=== PATIENT | female | born 1965 ===

== ENCOUNTER 2017-01-20 22:14 | Emergency (ER) | payer OTHER ==
[2017-01-20 22:14] VITALS: BMI 36.6
--- NOTE | 2017-01-20 23:03 | C.PDOC ---
History Of Present Illness 51 year old female presents to the ED with complaints of a headache and chills for the past few days. Patient states she is 3 months s/p nasal surgery for a deviated septum and started experiencing a foul odor from her nose 3 weeks after. She notes having associated pain, described as a burning sensation, from her sinuses up to her head and was recently started on Bactrim. Denies fever, vomiting, throat pain, or any other complaints at this time. Time Seen by Provider: 01/20/17 22:27 Chief Complaint (Nursing): Headache History Per: Patient History/Exam Limitations: no limitations Onset/Duration Of Symptoms: Days Current Symptoms Are (Timing): Still Present Severity: Mild Associated Symptoms: denies: Blurred Vision Past Medical History Reviewed: Historical Data, Nursing Documentation, Vital Signs Vital Signs: Last Vital Signs Temp 97.3 F L 01/20/17 23:43 Pulse 88 01/20/17 23:43 Resp 18 01/20/17 23:43 BP 146/88 01/20/17 23:43 Pulse Ox 98 01/20/17 23:43 - Medical History PMH: Anxiety, Asthma, Cardia Arrhythmia, Depression, Diabetes, Gastritis, HTN, Hypercholesterolemia, Chronic Pain (Back (since fall in February 2015)) Surgical History: Endoscopy Family History: States: Unknown Family Hx - Social History Hx Tobacco Use: No Hx Alcohol Use: No Hx Substance Use: No - Immunization History Hx Tetanus Toxoid Vaccination: No Hx Influenza Vaccination: No Hx Pneumococcal Vaccination: No Review Of Systems Except As Marked, All Systems Reviewed And Found Negative. Constitutional: Positive for: Chills, Other (+Sinus pain). Negative for: Fever Eyes: Negative for: Vision Change Gastrointestinal: Negative for: Vomiting Musculoskeletal: Negative for: Neck Pain Neurological: Positive for: Headache Physical Exam - Physical Exam Appears: Non-toxic, No Acute Distress Skin: Normal Color, Warm, Dry, No Rash Head: Atraumatic, Normacephalic, Tenderness (+Left maxillary sinus tenderness) Eye(s): bilateral: Normal Inspection, PERRL, EOMI Ear(s): Bilateral: Normal Nose: Normal, No Discharge, No Epistaxis, No Septal Hematoma Oral Mucosa: Moist Throat: Normal, No Erythema, No Exudate Neck: Supple Chest: Symmetrical Cardiovascular: Rhythm Regular, No Friction Rub, No Murmur Respiratory: Normal Breath Sounds, No Accessory Muscle Use, No Rales, No Rhonchi , No Wheezing Neurological/Psych: Oriented x3, Normal Speech, Normal Cognition, Normal Motor Gait: Steady ED Course And Treatment O2 Sat by Pulse Oximetry: 97 (Room air) Pulse Ox Interpretation: Normal - CT Scan/US CT Head w/o contrast Other Rad Studies (CT/US): Read By Radiologist, Radiology Report Reviewed CT/US Interpretation: EXAM: CT Head Without Intravenous Contrast. CLINICAL HISTORY: 51 years old, female; Condition or disease; Headache; Additional info : Maxillary sinus tenderness,. R/O sinusitis. TECHNIQUE: Axial computed tomography images of the head/brain without intravenous contrast. This CT exam. was performed using one or more of the following dose reduction techniques: automated exposure. control, adjustment of the mA and/or kV according to patient size, and/or use of iterative. reconstruction technique. COMPARISON: CT - HEAD W/O CONTRAST 06/18/2016 11:29:15 PM. FINDINGS: Brain: Mild atrophy. No intracranial hemorrhage. No mass. No definite edema. Ventricles: No hydrocephalus. Bones/joints: No acute fracture. Soft tissues: Unremarkable. Sinuses: Tiny LEFT maxillary retention cyst. Mastoid air cells: No mastoid effusion. Orbits: Unremarkable as visualized. IMPRESSION: 1. No acute intracranial abnormality. 2. Incidental/non-acute findings are described above Progress Note: CT Head w/o contrast ordered and reviewed. Patient treated with Toradol and Prednisone Medical Decision Making Medical Decision Making: Results were discussed with the patient. Patient reports that she was placed on antibiotics for possible sinusitis by ENT 2 days ago. Patient was instructed to continue taking the antibiotics until complete. Disposition - Disposition Referrals: Shaheed Garcia MD [Staff Provider] - Disposition: HOME/ ROUTINE Disposition Time: 23:29 Condition: GOOD Additional Instructions: Continue taking the antibiotics until finished Follow up with the ENT doctor on thursday as scheduled without fail. Return if worsened. Prescriptions: Ibuprofen [Motrin] 600 mg PO TID #21 tab predniSONE [Prednisone] 10 mg PO BID #10 tab Instructions: Sinusitis (ED) - Clinical Impression Clinical Impression: Sinusitis - PA / PAPER CORE MACHINE OPERATOR / Resident Statement MD/DO has reviewed & agrees with the documentation as recorded. - Scribe Statement The provider has reviewed the documentation as recorded by the Scribe Ysteena Nasralah. All medical record entries made by the Scribe were at my direction and personally dictated by me. I have reviewed the chart and agree that the record accurately reflects my personal performance of the history, physical exam, medical decision making, and the department course for this patient. I have also personally directed, reviewed, and agree with the discharge instructions and disposition.
[2017-01-20 23:44] VITALS: BP 146/88; PULSE 88; RESP 18; TEMP 97.3
[2017-01-21 05:28] VITALS: O2SAT 97
--- NOTE | 2017-01-21 08:36 | CT ---
PROCEDURE: CT HEAD WITHOUT CONTRAST. HISTORY: maxillary sinus tenderness, r/o sinusitis COMPARISON: 06/18/2016 TECHNIQUE: Axial computed tomography images were obtained through the head/brain without intravenous contrast. Radiation dose: Total exam DLP = 890 mGy-cm. This CT exam was performed using one or more of the following dose reduction techniques: Automated exposure control, adjustment of the mA and/or kV according to patient size, and/or use of iterative reconstruction technique. FINDINGS: HEMORRHAGE: No intracranial hemorrhage. BRAIN: Mild atrophy. No chronic microvascular ischemic changes. VENTRICLES: Unremarkable. No hydrocephalus. CALVARIUM: Unremarkable. PARANASAL SINUSES: Tiny mucosal retention cyst in the left maxillary sinus. MASTOID AIR CELLS: Unremarkable as visualized. No inflammatory changes. OTHER FINDINGS: None. IMPRESSION: No acute intracranial abnormality. Tiny mucosal retention cyst in the left maxillary sinus. These findings were preliminarily reported at 11:04 p.m. on 01/20/[address] Max Motta from [facility].
== END 2017-01-20 23:43 | disposition home or self-care (01) ==
LOC: C.ER 22:14
DX: J32.9 Chronic sinusitis, unspecified (principal)
CPT/HCPCS: 70450; 96372; 99284; J1885

== ENCOUNTER 2018-02-12 10:30 | Inpatient (IN) | payer OTHER ==
[2018-02-12 10:31] VITALS: BMI 36.6
--- NOTE | 2018-02-12 11:06 | C.PDOC ---
History Of Present Illness 52 y/o female with a PMHx of HTN, diabetes, and hypercholesterolemia, presents to the ED via EMS with 3 hour history of sharp chest pain. Associated with SOB , nausea, and 1 episode of vomiting. Patient states the pain began suddenly this morning, and due to persistence of pain she called EMS. She denies prior hx of DVT or pulmonary embolism. On further discussion patient also states she fell 2 days ago, tripped and hit her head. Time Seen by Provider: 02/12/18 10:39 Chief Complaint (Nursing): Chest Pain History Per: Patient History/Exam Limitations: no limitations Onset/Duration Of Symptoms: Hrs Current Symptoms Are (Timing): Still Present Past Medical History Reviewed: Historical Data, Nursing Documentation, Vital Signs Vital Signs: Last Vital Signs Temp 97.5 F L 02/14/18 04:00 Pulse 82 02/14/18 06:01 Resp 16 02/14/18 06:01 BP 90/49 L 02/14/18 06:01 Pulse Ox 100 02/14/18 07:43 - Medical History PMH: Anxiety, Asthma, Cardia Arrhythmia, Depression, Diabetes, Gastritis, HTN, Hypercholesterolemia, Hyperlipidemia, Chronic Pain (Back (since fall in February 2015 )) Denies: Chronic Kidney Disease Surgical History: Endoscopy Family History: States: Unknown Family Hx - Social History Hx Tobacco Use: No Hx Alcohol Use: No Hx Substance Use: No - Immunization History Hx Tetanus Toxoid Vaccination: No Hx Influenza Vaccination: No Hx Pneumococcal Vaccination: No Review Of Systems Except As Marked, All Systems Reviewed And Found Negative. Cardiovascular: Positive for: Chest Pain Respiratory: Positive for: Shortness of Breath Gastrointestinal: Positive for: Nausea, Vomiting Physical Exam - Physical Exam Appears: Non-toxic, No Acute Distress Skin: Normal Color, Warm, Dry Head: Atraumatic, Normacephalic Eye(s): bilateral: Normal Inspection, PERRL, EOMI Oral Mucosa: Moist Neck: Normal ROM, Supple Chest: Symmetrical, No Tenderness Cardiovascular: Rhythm Regular, No Murmur Respiratory: Normal Breath Sounds, No Accessory Muscle Use, No Rales, No Rhonchi , No Wheezing Gastrointestinal/Abdominal: Soft, No Tenderness, No Distention Extremity: Normal ROM, No Calf Tenderness, No Swelling Pulses: Left Radial: Normal, Right Radial: Normal Neurological/Psych: Oriented x3, Normal Speech ED Course And Treatment - Laboratory Results Result Diagrams: 02/14/18 06:53 02/14/18 04:15 ECG: Interpreted By Me, Viewed By Me, Discussed With Obstetrician And Gynaecologist ECG Rhythm: Sinus Rhythm (at 99 bpm, with normal intervals, normal axis, poor R wave progression), ST/T Changes (less than [address] elevation in v2) Interpretation Of ECG: Poor R wave progression is new compared to old EKG on O2 Sat by Pulse Oximetry: 100 (RA) Pulse Ox Interpretation: Normal - Other Rad CHEST X-Ray: Read By Radiologist Interpretation: FINDINGS: LUNGS: No focal consolidation. There is a tiny density overlying the lateral margin right 6th rib) that could represent film screen or vessel on end artifact however possibility of a tiny granuloma cannot be excluded. Follow-up nonemergent CT scan chest could be performed for further evaluation. PLEURA: No pneumothorax or pleural fluid seen. CARDIOVASCULAR: Normal. OSSEOUS STRUCTURES: No significant abnormalities. VISUALIZED UPPER ABDOMEN: Normal. OTHER FINDINGS: None. IMPRESSION: No acute infiltrates. Questionable artifact versus tiny granuloma lateral aspect right upper/mid lung zone as above - CT Scan/US CT Head Other Rad Studies (CT/US): Read By Radiologist, Radiology Report Reviewed CT/US Interpretation: FINDINGS: HEMORRHAGE: No acute parenchymal, subarachnoid or extra-axial hemorrhage. BRAIN: No evidence of large acute infarct. Note again made of prominent subarachnoid space left anterior inferior middle cranial fossa. Re- demonstrated is a tiny focus of fat within right choroid plexus. Mild generalized volume loss. VENTRICLES: No obstructive hydrocephalus. CALVARIUM: Unremarkable. PARANASAL SINUSES: Previously noted mucosal thickening left maxillary antrum improved. MASTOID AIR CELLS: Unremarkable as visualized. No inflammatory changes. OTHER FINDINGS : None. IMPRESSION: No acute intracranial hemorrhage. Mild generalized volume Medical Decision Making Medical Decision Making: Impression: Chest pain, Head injury Initial Plan: --EKG --Pro-BNP --CMP --Lipase --Troponin I --CBC --D dimer --Chest x-ray --Accucheck --Aspirin 81 mg PO --Pepcid 20 mg IVP --Zofran 4 mg IVP --CT Head w/o contrast On reevaluation, patient continues to complain of ongoing chest pain. 2nd EKG ordered, shows no changes. Normal sinus rhythm at 99 bpm with poor R wave progression 12:[address] Sheikh, cardiology on-call for stat consult 12:[address] Ambriz. Patient admitted to tele obs for chest pain. 1:[address] Sheikh placed 2:03 Received call back from Dr. Sheikh, notified of patient and states he will see patient. Disposition Discussed With : Santos Ambriz Doctor Will See Patient In The: Hospital Counseled Patient/Family Regarding: Studies Performed, Diagnosis - Disposition Disposition: HOSPITALIZED Disposition Time: 12:32 Condition: FAIR - Clinical Impression Clinical Impression: Chest pain - Scribe Statement The provider has reviewed the documentation as recorded by the Scribe (Brenda Ashby) Provider Attestation: All medical record entries made by the Scribe were at my direction and personally dictated by me. I have reviewed the chart and agree that the record accurately reflects my personal performance of the history, physical exam, medical decision making, and the department course for this patient. I have also personally directed, reviewed, and agree with the discharge instructions and disposition.
[2018-02-12 11:14] LABS: BASO # 0.1 K/uL (0.0-0.2); BASO % 0.7 % (0.0-2.0); EOS # 0.1 K/uL (0.0-0.7); EOS % 0.4 % (0.0-4.0); HEMOGLOBIN 14.1 g/dL (11.0-16.0); LYMPH # 2.9 K/uL (1.0-4.3); LYMPH % 17.2 % (20.0-40.0); MEAN CELL VOLUME 86.2 fL (81.0-99.0); MEAN CORPUSCULAR HEMOGLOBIN 29.4 pg (27.0-31.0); MEAN CORPUSCULAR HGB CONC 34.1 g/dL (33.0-37.0); MONO # 0.8 K/uL (0.0-0.8); MONO % 4.9 % (0.0-10.0); NEUT # 12.9 K/uL (1.8-7.0); NEUT % 76.8 % (50.0-75.0); RBC 4.81 Mil/uL (3.80-5.20); RED CELL DISTRIBUTION WIDTH 14.4 % (11.5-14.5); WHITE BLOOD COUNT 16.8 K/uL (4.8-10.8)
[2018-02-12] MEDS ORDERED: Morphine 4 MG/ML VIAL ONE ×2 (11:18→12:19)
--- NOTE | 2018-02-12 11:27 | RAD ---
PROCEDURE: CHEST RADIOGRAPH, 1 VIEW HISTORY: chest pain COMPARISON: Comparison made with prior chest radiograph 10/31/2016 FINDINGS: LUNGS: No focal consolidation. There is a tiny density overlying the lateral margin right 6th rib) that could represent film screen or vessel on end artifact however possibility of a tiny granuloma cannot be excluded. Follow-up nonemergent CT scan chest could be performed for further evaluation PLEURA: No pneumothorax or pleural fluid seen. CARDIOVASCULAR: Normal. OSSEOUS STRUCTURES: No significant abnormalities. VISUALIZED UPPER ABDOMEN: Normal. OTHER FINDINGS: None. IMPRESSION: No acute infiltrates. Questionable artifact versus tiny granuloma lateral aspect right upper/mid lung zone as above
[2018-02-12 11:34] LABS: ALB/GLOB RATIO 1.2 (1.0-2.1); ALT/SGPT 19 U/L (9-52); AST/SGOT 29 U/L (14-36); BLOOD UREA NITROGEN 12 mg/dL (7-17); CALCIUM 9.3 mg/dl (8.6-10.4); GFR AFRICAN-AMERICAN > 60; GFR NON-AFRICAN AMERICAN > 60; LIPASE 91 U/L (23-300)
[2018-02-12 11:39] LABS: B-TYPE NATRIURETIC PEPTIDE 121 pg/mL (0-900)
--- NOTE | 2018-02-12 12:18 | CT ---
PROCEDURE: CT scan brain dated 02/12/2018. HISTORY: Dizziness COMPARISON: Comparison made with CT scan brain 02/05/2017 TECHNIQUE: Contiguous helical/ transaxial computed tomography images were obtained through the head/brain without intravenous contrast. Radiation dose: Total exam DLP = 1105.68 mGy-cm. This CT exam was performed using one or more of the following dose reduction techniques: Automated exposure control, adjustment of the mA and/or kV according to patient size, and/or use of iterative reconstruction technique. FINDINGS: HEMORRHAGE: No acute parenchymal, subarachnoid or extra-axial hemorrhage. BRAIN: No evidence of large acute infarct. Note again made of prominent subarachnoid space left anterior inferior middle cranial fossa. Re- demonstrated is a tiny focus of fat within right choroid plexus. Mild generalized volume loss VENTRICLES: No obstructive hydrocephalus. CALVARIUM: Unremarkable. PARANASAL SINUSES: Previously noted mucosal thickening left maxillary antrum improved. MASTOID AIR CELLS: Unremarkable as visualized. No inflammatory changes. OTHER FINDINGS: None. IMPRESSION: No acute intracranial hemorrhage. Mild generalized volume
[2018-02-12] MEDS ORDERED: Oxybutynin XL 10 mg Tab PO PRN (14:54)
--- NOTE | 2018-02-12 16:59 | CP.PCM.PCO ---
Physician Communication Note - Physician Communication Note Physician Communication Note: Patient follows up with Dr. Ledezma who is the patient's primary cardio Subjective - Physician Review Events Since Last Encounter (Free Text): Patient follows Dr. Ledezma as her primary dredge runner who we spoke to and agrees to resume care of the patient. He will see the patient tomorrow in the morning. 02/12/18 16:57
[2018-02-12 17:18] LABS: CK-MB 31.1 ng/mL (0.0-3.38); TROPONIN I 3.13 ng/mL (0.00-0.120)
[2018-02-12] MEDS ORDERED: Heparin25000 units/250ml 1/2NS 25,000 UNITS/250 ML BAG IV PRN (17:53)
[2018-02-12 18:46] LABS: PROTHROMBIN TIME 11.5 SECONDS (9.7-12.2)
[2018-02-12 19:25] LABS: BASO # 0.2 K/uL (0.0-0.2); BASO % 1.1 % (0.0-2.0); EOS # 0.1 K/uL (0.0-0.7); EOS % 0.4 % (0.0-4.0); HEMOGLOBIN 13.7 g/dL (11.0-16.0); LYMPH # 3.5 K/uL (1.0-4.3); LYMPH % 24.4 % (20.0-40.0); MEAN CELL VOLUME 86.1 fL (81.0-99.0); MEAN CORPUSCULAR HEMOGLOBIN 28.3 pg (27.0-31.0); MEAN CORPUSCULAR HGB CONC 32.8 g/dL (33.0-37.0); MEAN PLATELET VOLUME 7.8 fL (7.2-11.7); NEUT # 9.6 K/uL (1.8-7.0); NEUT % 67.1 % (50.0-75.0); RBC 4.83 Mil/uL (3.80-5.20); RED CELL DISTRIBUTION WIDTH 14.2 % (11.5-14.5); WHITE BLOOD COUNT 14.3 K/uL (4.8-10.8)
[2018-02-12] MEDS ORDERED: Metoprolol 1 mg/ml Inj IVP ONE (19:25)
[2018-02-12 19:41] LABS: ALB/GLOB RATIO 1.2 (1.0-2.1); ALBUMIN 3.6 g/dL (3.5-5.0); ALT/SGPT 26 U/L (9-52); AST/SGOT 93 U/L (14-36); BLOOD UREA NITROGEN 13 mg/dL (7-17); GFR AFRICAN-AMERICAN > 60; GFR NON-AFRICAN AMERICAN > 60
[2018-02-12] MEDS ORDERED: Midazolam 2 MG/2 ML VIAL ONE (19:42)
[2018-02-12] MEDS ORDERED: Iohexol 350mg/ml 100 ML ONE (19:52)
[2018-02-12 20:06] LABS: CK-MB 63.9 ng/mL (0.0-3.38)
[2018-02-12] MEDS: (Lantus) Insulin Glargine, Recombinant SC SCH (20:35)
[2018-02-12] MEDS: (Novolin R) Insulin Human Regular 100 units/ml vial SC SCH (20:36)
[2018-02-12] MEDS ORDERED: DiphenhydrAMINE 50 mg/ml Inj ONE (20:43)
[2018-02-12] MEDS ORDERED: Eptifibatide 20 mg/10mL Inj IVP ONE (20:51)
[2018-02-12] MEDS: Sodium Chloride 0.9% 1,000 ML IV SCH (21:15)
--- NOTE | 2018-02-12 21:15 | CP.PCM.CON ---
History of Present Illness - History of Present Illness History of Present Illness: Patient s/p Code heart for Anterior STEMI 1. Prox L main 30% 2. LAD prox 100% 3. L Cx: OM 30% 4. RCA: Proximal 75% 5. LV: EF 30%, Anterior and apical hartley are severely hypokinetic, EDP 26, No AV gradient Successful LAD intervention and ASHLEY insertion ASA, Plavix, Statins, B blockers, TATE I for now OOB to Chair after 2 hours and ambulate in am Gentle hydration Hold Metformin for 2 days Check ECHO Recommend RCA intervention as out patient Post STEMI and ASHLEY management D/w Dr. Ledezma transcriptionist on the case Past Patient History - Past Medical History & Family History Past Medical History?: Yes - Past Social History Smoking Status: Former Smoker - CARDIAC Hx Cardia Arrhythmia: Yes Hx Hypercholesterolemia: Yes Hx Hypertension: Yes - PULMONARY Hx Asthma: Yes - NEUROLOGICAL Hx Neurological Disorder: Yes (DIABETIC NEUROPATHY, RESTLESS LEG SYNDROME) Hx Vertigo: Yes Other/Comment: Nausea/Vomiting, unknown cause - HEENT Hx HEENT Problems: No - RENAL Hx Chronic Kidney Disease: No - ENDOCRINE/METABOLIC Hx Endocrine Disorders: Yes Hx Diabetes Mellitus Type 2: Yes - HEMATOLOGICAL/ONCOLOGICAL Hx Blood Disorders: No - INTEGUMENTARY Hx Dermatological Problems: No - MUSCULOSKELETAL/RHEUMATOLOGICAL Hx Musculoskeletal Disorders: No - GASTROINTESTINAL Hx Gastritis: Yes - GENITOURINARY/GYNECOLOGICAL Hx Genitourinary Disorders: No - PSYCHIATRIC Hx Anxiety: Yes Hx Depression: Yes Hx Substance Use: No - SURGICAL HISTORY Hx Surgeries: Yes Hx Cardiac Catheterization: Yes Hx Tubal Ligation: Yes Other/Comment: NOSE SURGERY - ANESTHESIA Hx Anesthesia: Yes Hx Anesthesia Reactions: Yes Hx Malignant Hyperthermia: No Meds Allergies/Adverse Reactions: Allergies Allergy/AdvReac Type Severity Reaction Status Date / Time No Known Allergies Allergy Verified 02/12/18 10:44 - Medications Medications: Current Medications Aspirin (Ecotrin) 81 mg PO DAILY [facility] Carvedilol (Coreg) 3.125 mg PO BID [facility] Clopidogrel Bisulfate (Plavix) 75 mg PO DAILY [facility] Enoxaparin Sodium (Lovenox) 40 mg SC DAILY [facility] Fluocinonide (Lidex 0.05% Cream) gm TOP BID [facility] Sodium Chloride (Sodium Chloride 0.9%) 1,000 mls @ 50 mls/hr IV .Q20H [facility] Insulin Glargine (Lantus) 30 unit SC BID [facility] Last Admin: 02/12/18 20:35 Dose: Not Given Insulin Human Regular (Novolin R) 8 unit SC TID [facility] Last Admin: 02/12/18 20:36 Dose: Not Given Losartan Potassium (Cozaar) 50 mg PO DAILY [facility] Montelukast Sodium (Singulair) 10 mg PO DAILY [facility] Morphine Sulfate (Morphine Immediate Release Tab) 15 mg PO DAILY [facility] Nitroglycerin (Nitrostat Sl Tab) 0.4 mg SL Q5M PRN PRN Reason: Pain, moderate (4-7) Last Admin: 02/12/18 18:44 Dose: 0.4 mg Oxybutynin Chloride (Ditropan Xl) 10 mg PO DAILY PRN PRN Reason: Pain, severe (8-10) Oxycodone/Acetaminophen (Percocet 5/325 Mg Tab) 1 tab PO DAILY [facility] Stop: 02/16/18 10:01 Pantoprazole Sodium (Protonix Ec Tab) 40 mg PO DAILY [facility] Pramipexole Dihydrochloride (Mirapex) 0.5 mg PO DAILY [facility] Pregabalin (Lyrica) 75 mg PO HS [facility] Rosuvastatin Calcium (Crestor) 20 mg PO HS [facility] Results - Vital Signs Recent Vital Signs: Last Vital Signs Temp 97.9 F 02/12/18 18:05 Pulse 106 H 02/12/18 18:44 Resp 20 02/12/18 18:44 BP 107/73 02/12/18 18:44 Pulse Ox 98 02/12/18 18:44 - Labs Result Diagrams: 02/12/18 19:20 02/12/18 19:20 Labs: Laboratory Results - last 24 hr 02/12/18 02/12/18 02/12/18 10:35 11:08 11:08 WBC 16.8 H RBC 4.81 Hgb 14.1 Hct 41.4 MCV 86.2 MCH 29.4 MCHC 34.1 RDW 14.4 Plt Count 353 MPV 8.0 Neut % (Auto) 76.8 H Lymph % (Auto) 17.2 L Mcminn % (Auto) 4.9 Eos % (Auto) 0.4 Baso % (Auto) 0.7 Neut # (Auto) 12.9 H Lymph # (Auto) 2.9 Mcminn # (Auto) 0.8 Eos # (Auto) 0.1 Baso # (Auto) 0.1 PT INR APTT D-Dimer, Quantitative < 200 Sodium Potassium Chloride Carbon Dioxide Anion Gap BUN Creatinine Est GFR ( Amer) Est GFR (Non-Af Amer) POC Glucose (mg/dL) 256 H Random Glucose Calcium Phosphorus Magnesium Total Bilirubin AST ALT Alkaline Phosphatase Total Creatine Kinase CK-MB (Mass) Troponin I NT-Pro-B Natriuret Pep Total Protein Albumin Globulin Albumin/Globulin Ratio Lipase Blood Type Antibody Screen 02/12/18 02/12/18 02/12/18 11:08 16:35 17:17 WBC RBC Hgb Hct MCV MCH MCHC RDW Plt Count MPV Neut % (Auto) Lymph % (Auto) Mcminn % (Auto) Eos % (Auto) Baso % (Auto) Neut # (Auto) Lymph # (Auto) Mcminn # (Auto) Eos # (Auto) Baso # (Auto) PT INR APTT D-Dimer, Quantitative Sodium 137 Potassium 4.3 Chloride 97 L Carbon Dioxide 23 Anion Gap 21 H BUN 12 Creatinine 0.5 L Est GFR ( Amer) > 60 Est GFR (Non-Af Amer) > 60 POC Glucose (mg/dL) 212 H Random Glucose 335 H Calcium 9.3 Phosphorus Magnesium Total Bilirubin 0.8 AST 29 ALT 19 Alkaline Phosphatase 104 Total Creatine Kinase 332 H CK-MB (Mass) 31.1 H Troponin I 0.0880 3.1300 H* NT-Pro-B Natriuret Pep 121 Total Protein 7.2 Albumin 4.0 Globulin 3.2 Albumin/Globulin Ratio 1.2 Lipase 91 Blood Type Antibody Screen 02/12/18 02/12/18 02/12/18 18:33 19:20 19:20 WBC 14.3 H RBC 4.83 Hgb 13.7 Hct 41.6 MCV 86.1 MCH 28.3 MCHC 32.8 L RDW 14.2 Plt Count 359 MPV 7.8 Neut % (Auto) 67.1 Lymph % (Auto) 24.4 Mcminn % (Auto) 7.0 Eos % (Auto) 0.4 Baso % (Auto) 1.1 Neut # (Auto) 9.6 H Lymph # (Auto) 3.5 Mcminn # (Auto) 1.0 H Eos # (Auto) 0.1 Baso # (Auto) 0.2 PT 11.5 INR 1.0 APTT 26 D-Dimer, Quantitative Sodium 136 Potassium 4.2 Chloride 99 Carbon Dioxide 27 Anion Gap 14 BUN 13 Creatinine 0.5 L Est GFR ( Amer) > 60 Est GFR (Non-Af Amer) > 60 POC Glucose (mg/dL) Random Glucose 243 H Calcium 9.0 Phosphorus 4.4 Magnesium 1.4 L Total Bilirubin 0.8 AST 93 H D ALT 26 Alkaline Phosphatase 92 Total Creatine Kinase 655 H CK-MB (Mass) 63.9 H Troponin I 6.2300 H* NT-Pro-B Natriuret Pep Total Protein 6.5 Albumin 3.6 Globulin 3.0 Albumin/Globulin Ratio 1.2 Lipase Blood Type Antibody Screen 02/12/18 19:20 WBC RBC Hgb Hct MCV MCH MCHC RDW Plt Count MPV Neut % (Auto) Lymph % (Auto) Mcminn % (Auto) Eos % (Auto) Baso % (Auto) Neut # (Auto) Lymph # (Auto) Mcminn # (Auto) Eos # (Auto) Baso # (Auto) PT INR APTT D-Dimer, Quantitative Sodium Potassium Chloride Carbon Dioxide Anion Gap BUN Creatinine Est GFR ( Amer) Est GFR (Non-Af Amer) POC Glucose (mg/dL) Random Glucose Calcium Phosphorus Magnesium Total Bilirubin AST ALT Alkaline Phosphatase Total Creatine Kinase CK-MB (Mass) Troponin I NT-Pro-B Natriuret Pep Total Protein Albumin Globulin Albumin/Globulin Ratio Lipase Blood Type B POSITIVE Antibody Screen Negative
[2018-02-12] MEDS ORDERED: Oxycodone/Acetaminophen 5/325 mg Tab PO PRN (21:56)
[2018-02-13 06:30] LABS: BASO % 0.1 % (0.0-2.0); HEMOGLOBIN 14.4 g/dL (11.0-16.0); LYMPH # 0.9 K/uL (1.0-4.3); LYMPH % 7.3 % (20.0-40.0); MEAN CORPUSCULAR HEMOGLOBIN 29.7 pg (27.0-31.0); MEAN CORPUSCULAR HGB CONC 34.2 g/dL (33.0-37.0); MEAN PLATELET VOLUME 8.4 fL (7.2-11.7); MONO # 0.1 K/uL (0.0-0.8); MONO % 0.9 % (0.0-10.0); NEUT # 11.3 K/uL (1.8-7.0); NEUT % 91.7 % (50.0-75.0); PLATELET COUNT 358 K/uL (130-400); RBC 4.84 Mil/uL (3.80-5.20); RED CELL DISTRIBUTION WIDTH 14.3 % (11.5-14.5); WHITE BLOOD COUNT 12.3 K/uL (4.8-10.8)
[2018-02-13 06:52] LABS: ALB/GLOB RATIO 1.1 (1.0-2.1); ALBUMIN 3.6 g/dL (3.5-5.0); ALT/SGPT 39 U/L (9-52); AST/SGOT 239 U/L (14-36); BLOOD UREA NITROGEN 11 mg/dL (7-17); CALCIUM 8.9 mg/dl (8.6-10.4); GFR AFRICAN-AMERICAN > 60; GFR NON-AFRICAN AMERICAN > 60
--- NOTE | 2018-02-13 08:20 | CP.PCM.HP ---
History of Present Illness - History of Present Illness History of Present Illness: CC: chest pain HPI: 52 y/o female with a PMHx of HTN, diabetes for 15 years, and hypercholesterolemia,who is complaint with diet, medications and follow up, in her [facility] status of health, where she is ambulatory and indepependent in ADL, she developed chest pain this morning and presents to the ED via EMS with 3 hour history of sharp chest pain, perssitant, pressure like Associated with SOB , nausea, and 1 episode of vomiting. Patient states the pain began suddenly this morning, and due to persistence of pain she called EMS. She denies prior hx of DVT or pulmonary embolism. On further discussion patient also states she fell 2 days ago, tripped and hit her head. Pt EKG was done and around 6 pm when i examined her her troponins were positive CODE HEART was called and pt was admitted to ICU and pt is in process of cardiac cauterization Present on Admission - Present on Admission Any Indicators Present on Admission: Yes Review of Systems - Review of Systems Systems not reviewed;Unavailable: Acuity of Condition - Constitutional Constitutional: Fatigue, Lethargy, Malaise, Weakness - EENT Eyes: absent: As Per HPI, Blind Spots, Blurred Vision, Change in Vision, Decreased Night Vision, Diplopia, Discharge, Dry Eye, Exophthalmos, Floaters, Irritation, Itchy Eyes, Loss of Peripheral Vision, Pain, Photophobia, Requires Corrective Lenses, Sees Flashes, Spots in Vision, Tunnel Vision, Other Visual Disturbances, Loss of Vision, Other Ears: absent: As Per HPI, Decreased Hearing, Ear Discharge, Ear Pain, Tinnitus, Abnormal Hearing, Disequilibrium, Dizziness, Other Nose/Mouth/Throat: absent: As Per HPI, Epistaxis, Nasal Congestion, Nasal Discharge, Nasal Obstruction, Nasal Trauma, Nose Pain, Post Nasal Drip, Sinus Pain, Sinus Pressure, Bleeding Gums, Change in Voice, Dental Pain, Dry Mouth, Dysphagia, Halitosis, Hoarsness, Lip Swelling, Mouth Lesions, Mouth Pain, Odynophagia, Sore Throat, Throat Swelling, Tongue Swelling, Facial Pain, Neck Pain, Neck Mass, Other - Cardiovascular Cardiovascular: Chest Pain, Palpitations - Respiratory Respiratory: absent: As Per HPI, Cough, Dyspnea, Hemoptysis, Dyspnea on Exertion , Wheezing, Snoring, Stridor, Pain on Inspiration, Chest Congestion, Excessive Mucous Production, Change in Mucous Color, Pain with Coughing, Other - Gastrointestinal Gastrointestinal: absent: As Per HPI, Abdominal Pain, Belching, Bloating, Change in Bowel Habits, Change in Stool Character, Coffee Ground Emesis, Constipation, Cramping, Diarrhea, Dyspepsia, Dysphagia, Early Satiety, Excessive Flatus, Fecal Incontinence, Heartburn, Hematemesis, Hematochezia, Loose Stools, Melena, Nausea, Odynophagia, Temesmus, Vomiting, Other - Musculoskeletal Musculoskeletal: Numbness, Tingling - Integumentary Integumentary: absent: As Per HPI, Acne, Alopecia, Bleeding Lesions, Change in Hair, Change in Nails, Change in Pigmentation, Changing Lesions, Dry Skin, Erythema, Furuncle, Hirsutism, Lesions, New Lesions, Non-Healing Lesions, Photosensitivity, Pruritus, Rash, Skin Pain, Skin Ulcer, Sores, Striae, Swelling , Unusual Bruising, Wounds, Jaundice, Other - Neurological Neurological: Dizziness, Numbness, Tingling, Weakness - Psychiatric Psychiatric: absent: As Per HPI, Abnormal Sleep Pattern, Anhedonia, Anxiety, Auditory Hallucinations, Behavioral Changes, Change in Appetite, Change in Libido, Confusion, Depression, Difficulty Concentrating, Hallucinations, Homicidal Ideation, Hopelessness, Irritability, Memory Loss, Mood Swings, Panic Attacks, Paranoia, Suicidal Ideation, Visual Hallucinations, Tactile Hallucinations, Other Past Patient History - Past Medical History & Family History Past Medical History?: Yes - Past Social History Smoking Status: Former Smoker - CARDIAC Hx Cardia Arrhythmia: Yes Hx Hypercholesterolemia: Yes Hx Hypertension: Yes - PULMONARY Hx Asthma: Yes - NEUROLOGICAL Hx Neurological Disorder: Yes (DIABETIC NEUROPATHY, RESTLESS LEG SYNDROME) Hx Vertigo: Yes Other/Comment: Nausea/Vomiting, unknown cause - HEENT Hx HEENT Problems: No - RENAL Hx Chronic Kidney Disease: No - ENDOCRINE/METABOLIC Hx Endocrine Disorders: Yes Hx Diabetes Mellitus Type 2: Yes - HEMATOLOGICAL/ONCOLOGICAL Hx Blood Disorders: No - INTEGUMENTARY Hx Dermatological Problems: No - MUSCULOSKELETAL/RHEUMATOLOGICAL Hx Musculoskeletal Disorders: No - GASTROINTESTINAL Hx Gastritis: Yes - GENITOURINARY/GYNECOLOGICAL Hx Genitourinary Disorders: No - PSYCHIATRIC Hx Anxiety: Yes Hx Depression: Yes Hx Substance Use: No - SURGICAL HISTORY Hx Surgeries: Yes Hx Cardiac Catheterization: Yes Hx Tubal Ligation: Yes Other/Comment: NOSE SURGERY - ANESTHESIA Hx Anesthesia: Yes Hx Anesthesia Reactions: Yes Hx Malignant Hyperthermia: No Meds Allergies/Adverse Reactions: Allergies Allergy/AdvReac Type Severity Reaction Status Date / Time No Known Allergies Allergy Verified 02/12/18 10:44 Physical Exam - Constitutional Appears: In Acute Distress Additional comments: elderly female who is in distress due to chest pain - Eye Exam Eye Exam: EOMI, Normal appearance, PERRL Pupil Exam: NORMAL ACCOMODATION, PERRL - Neck Exam Neck exam: Positive for: Normal Inspection Additional comments: supple no JVD - Respiratory Exam Respiratory Exam: Clear to Auscultation Bilateral, NORMAL BREATHING PATTERN - Cardiovascular Exam Cardiovascular Exam: REGULAR RHYTHM - GI/Abdominal Exam GI & Abdominal Exam: Normal Bowel Sounds, Soft. absent: Tenderness - Rectal Exam Rectal Exam: Deferred - Extremities Exam Extremities exam: Positive for: normal inspection Additional comments: decresaed sensation to touch in b/l LE Results - Vital Signs Recent Vital Signs: Last Vital Signs Temp 98.2 F 02/13/18 04:00 Pulse 115 H 02/13/18 06:01 Resp 18 02/13/18 06:01 BP 117/90 02/13/18 06:01 Pulse Ox 97 02/13/18 06:01 - Labs Result Diagrams: 02/13/18 06:21 02/13/18 06:21 Labs: Laboratory Results - last 24 hr 02/12/18 02/12/18 02/12/18 10:35 11:08 11:08 WBC 16.8 H RBC 4.81 Hgb 14.1 Hct 41.4 MCV 86.2 MCH 29.4 MCHC 34.1 RDW 14.4 Plt Count 353 MPV 8.0 Neut % (Auto) 76.8 H Lymph % (Auto) 17.2 L [place] % (Auto) 4.9 Eos % (Auto) 0.4 Baso % (Auto) 0.7 Neut # (Auto) 12.9 H Lymph # (Auto) 2.9 [place] # (Auto) 0.8 Eos # (Auto) 0.1 Baso # (Auto) 0.1 PT INR APTT D-Dimer, Quantitative < 200 Sodium Potassium Chloride Carbon Dioxide Anion Gap BUN Creatinine Est GFR ( Amer) Est GFR (Non-Af Amer) POC Glucose (mg/dL) 256 H Random Glucose Calcium Phosphorus Magnesium Total Bilirubin AST ALT Alkaline Phosphatase Total Creatine Kinase CK-MB (Mass) Troponin I NT-Pro-B Natriuret Pep Total Protein Albumin Globulin Albumin/Globulin Ratio Lipase Blood Type Antibody Screen 02/12/18 02/12/18 02/12/18 11:08 16:35 17:17 WBC RBC Hgb Hct MCV MCH MCHC RDW Plt Count MPV Neut % (Auto) Lymph % (Auto) [place] % (Auto) Eos % (Auto) Baso % (Auto) Neut # (Auto) Lymph # (Auto) [place] # (Auto) Eos # (Auto) Baso # (Auto) PT INR APTT D-Dimer, Quantitative Sodium 137 Potassium 4.3 Chloride 97 L Carbon Dioxide 23 Anion Gap 21 H BUN 12 Creatinine 0.5 L Est GFR ( Amer) > 60 Est GFR (Non-Af Amer) > 60 POC Glucose (mg/dL) 212 H Random Glucose 335 H Calcium 9.3 Phosphorus Magnesium Total Bilirubin 0.8 AST 29 ALT 19 Alkaline Phosphatase 104 Total Creatine Kinase 332 H CK-MB (Mass) 31.1 H Troponin I 0.0880 3.1300 H* NT-Pro-B Natriuret Pep 121 Total Protein 7.2 Albumin 4.0 Globulin 3.2 Albumin/Globulin Ratio 1.2 Lipase 91 Blood Type Antibody Screen 02/12/18 02/12/18 02/12/18 18:33 19:20 19:20 WBC 14.3 H RBC 4.83 Hgb 13.7 Hct 41.6 MCV 86.1 MCH 28.3 MCHC 32.8 L RDW 14.2 Plt Count 359 MPV 7.8 Neut % (Auto) 67.1 Lymph % (Auto) 24.4 [place] % (Auto) 7.0 Eos % (Auto) 0.4 Baso % (Auto) 1.1 Neut # (Auto) 9.6 H Lymph # (Auto) 3.5 [place] # (Auto) 1.0 H Eos # (Auto) 0.1 Baso # (Auto) 0.2 PT 11.5 INR 1.0 APTT 26 D-Dimer, Quantitative Sodium 136 Potassium 4.2 Chloride 99 Carbon Dioxide 27 Anion Gap 14 BUN 13 Creatinine 0.5 L Est GFR ( Amer) > 60 Est GFR (Non-Af Amer) > 60 POC Glucose (mg/dL) Random Glucose 243 H Calcium 9.0 Phosphorus 4.4 Magnesium 1.4 L Total Bilirubin 0.8 AST 93 H D ALT 26 Alkaline Phosphatase 92 Total Creatine Kinase 655 H CK-MB (Mass) 63.9 H Troponin I 6.2300 H* NT-Pro-B Natriuret Pep Total Protein 6.5 Albumin 3.6 Globulin 3.0 Albumin/Globulin Ratio 1.2 Lipase Blood Type Antibody Screen 02/12/18 02/12/18 02/13/18 19:20 22:09 06:21 WBC 12.3 H RBC 4.84 Hgb 14.4 Hct 42.1 MCV 87.0 MCH 29.7 MCHC 34.2 RDW 14.3 Plt Count 358 MPV 8.4 Neut % (Auto) 91.7 H Lymph % (Auto) 7.3 L [place] % (Auto) 0.9 Eos % (Auto) 0.0 Baso % (Auto) 0.1 Neut # (Auto) 11.3 H Lymph # (Auto) 0.9 L [place] # (Auto) 0.1 Eos # (Auto) 0.0 Baso # (Auto) 0.0 PT INR APTT D-Dimer, Quantitative Sodium Potassium Chloride Carbon Dioxide Anion Gap BUN Creatinine Est GFR ( Amer) Est GFR (Non-Af Amer) POC Glucose (mg/dL) 280 H Random Glucose Calcium Phosphorus Magnesium Total Bilirubin AST ALT Alkaline Phosphatase Total Creatine Kinase CK-MB (Mass) Troponin I NT-Pro-B Natriuret Pep Total Protein Albumin Globulin Albumin/Globulin Ratio Lipase Blood Type B POSITIVE Antibody Screen Negative 02/13/18 06:21 WBC RBC Hgb Hct MCV MCH MCHC RDW Plt Count MPV Neut % (Auto) Lymph % (Auto) [place] % (Auto) Eos % (Auto) Baso % (Auto) Neut # (Auto) Lymph # (Auto) [place] # (Auto) Eos # (Auto) Baso # (Auto) PT INR APTT D-Dimer, Quantitative Sodium 139 Potassium 4.5 Chloride 103 Carbon Dioxide 24 Anion Gap 18 BUN 11 Creatinine 0.5 L Est GFR ( Amer) > 60 Est GFR (Non-Af Amer) > 60 POC Glucose (mg/dL) Random Glucose 348 H Calcium 8.9 Phosphorus 4.9 H Magnesium 1.6 Total Bilirubin 0.7 AST 239 H D ALT 39 Alkaline Phosphatase 89 Total Creatine Kinase CK-MB (Mass) Troponin I NT-Pro-B Natriuret Pep Total Protein 6.9 Albumin 3.6 Globulin 3.3 Albumin/Globulin Ratio 1.1 Lipase Blood Type Antibody Screen Assessment & Plan (1) Chest pain Assessment and Plan: Patient s/p Code heart for Anterior STEMI 1. Prox L main 30% 2. LAD prox 100% 3. L Cx: OM 30% 4. RCA: Proximal 75% 5. LV: EF 30%, Anterior and apical hartley are severely hypokinetic, EDP 26, No AV gradient Successful LAD intervention and ASHLEY insertion ASA, Plavix, Statins, B blockers, TATE I for now OOB to Chair after 2 hours and ambulate in am Gentle hydration Hold Metformin for 2 days Check ECHO Recommend RCA intervention as out patient Status: Acute (2) Dizziness Status: Acute (3) Diabetes Assessment and Plan: Blood sugars fluctuating Hold Metformin for 2 days insulin Status: Acute
--- NOTE | 2018-02-13 08:37 | CP.PCM.CON ---
History of Present Illness - History of Present Illness History of Present Illness: CC: STEMI HPI: 52 year old female with following chronic medical problems 1. Poorly controlled chronic DM 2. HTN 3. Chronic diastolic CHF She presents with one day of acute chest pain, nausea and diaphoresis. She was found to have STEMI and is now s/p PCI of LAD with ASHLEY. Review of Systems - Review of Systems All systems: reviewed and no additional remarkable complaints except Past Patient History - Past Medical History & Family History Past Medical History?: Yes - Past Social History Smoking Status: Former Smoker - CARDIAC Hx Cardia Arrhythmia: Yes Hx Hypercholesterolemia: Yes Hx Hypertension: Yes - PULMONARY Hx Asthma: Yes - NEUROLOGICAL Hx Neurological Disorder: Yes (DIABETIC NEUROPATHY, RESTLESS LEG SYNDROME) Hx Vertigo: Yes Other/Comment: Nausea/Vomiting, unknown cause - HEENT Hx HEENT Problems: No - RENAL Hx Chronic Kidney Disease: No - ENDOCRINE/METABOLIC Hx Endocrine Disorders: Yes Hx Diabetes Mellitus Type 2: Yes - HEMATOLOGICAL/ONCOLOGICAL Hx Blood Disorders: No - INTEGUMENTARY Hx Dermatological Problems: No - MUSCULOSKELETAL/RHEUMATOLOGICAL Hx Musculoskeletal Disorders: No - GASTROINTESTINAL Hx Gastritis: Yes - GENITOURINARY/GYNECOLOGICAL Hx Genitourinary Disorders: No - PSYCHIATRIC Hx Anxiety: Yes Hx Depression: Yes Hx Substance Use: No - SURGICAL HISTORY Hx Surgeries: Yes Hx Cardiac Catheterization: Yes Hx Tubal Ligation: Yes Other/Comment: NOSE SURGERY - ANESTHESIA Hx Anesthesia: Yes Hx Anesthesia Reactions: Yes Hx Malignant Hyperthermia: No Meds Allergies/Adverse Reactions: Allergies Allergy/AdvReac Type Severity Reaction Status Date / Time No Known Allergies Allergy Verified 02/12/18 10:44 - Medications Medications: Current Medications Aspirin (Ecotrin) 81 mg PO DAILY [facility] Carvedilol (Coreg) 3.125 mg PO BID [facility] Clopidogrel Bisulfate (Plavix) 75 mg PO DAILY [facility] Enoxaparin Sodium (Lovenox) 40 mg SC DAILY [facility] Fluocinonide (Lidex 0.05% Cream) gm TOP BID [facility] Sodium Chloride (Sodium Chloride 0.9%) 1,000 mls @ 50 mls/hr IV .Q20H [facility] Last Admin: 02/12/18 21:15 Dose: Not Given Insulin Glargine (Lantus) 30 unit SC BID [facility] Last Admin: 02/12/18 20:35 Dose: Not Given Insulin Human Regular (Novolin R) 8 unit SC TID [facility] Last Admin: 02/12/18 20:36 Dose: Not Given Losartan Potassium (Cozaar) 50 mg PO DAILY [facility] Montelukast Sodium (Singulair) 10 mg PO DAILY [facility] Morphine Sulfate (Morphine Immediate Release Tab) 15 mg PO DAILY [facility] Nitroglycerin (Nitrostat Sl Tab) 0.4 mg SL Q5M PRN PRN Reason: Pain, moderate (4-7) Last Admin: 02/12/18 18:44 Dose: 0.4 mg Oxybutynin Chloride (Ditropan Xl) 10 mg PO DAILY PRN PRN Reason: Pain, severe (8-10) Oxycodone/Acetaminophen (Percocet 5/325 Mg Tab) 1 tab PO DAILY [facility] Stop: 02/16/18 10:01 Oxycodone/Acetaminophen (Percocet 5/325 Mg Tab) 1 tab PO Q4H PRN PRN Reason: chest pain Stop: 02/15/18 21:57 Last Admin: 02/13/18 05:34 Dose: 1 tab Pantoprazole Sodium (Protonix Ec Tab) 40 mg PO DAILY [facility] Pramipexole Dihydrochloride (Mirapex) 0.5 mg PO DAILY [facility] Pregabalin (Lyrica) 75 mg PO HS [facility] Last Admin: 02/12/18 22:11 Dose: 75 mg Rosuvastatin Calcium (Crestor) 20 mg PO [facility] Last Admin: 02/12/18 22:11 Dose: 20 mg Physical Exam - Constitutional Appears: Well, Non-toxic - Head Exam Head Exam: ATRAUMATIC, NORMAL INSPECTION - Eye Exam Eye Exam: PERRL. absent: Scleral icterus - ENT Exam ENT Exam: Mucous Membranes Moist, Normal External Ear Exam - Neck Exam Neck exam: Positive for: Full Rom. Negative for: Lymphadenopathy - Respiratory Exam Respiratory Exam: Clear to Auscultation Bilateral, NORMAL BREATHING PATTERN - Cardiovascular Exam Cardiovascular Exam: REGULAR RHYTHM, RRR, +S1, +S2. absent: JVD - GI/Abdominal Exam GI & Abdominal Exam: Normal Bowel Sounds. absent: Organomegaly - Extremities Exam Extremities exam: Positive for: pedal pulses present. Negative for: calf tenderness, pedal edema - Neurological Exam Neurological exam: CN II-XII Intact, Oriented x3 - Psychiatric Exam Psychiatric exam: Normal Affect, Normal Mood Results - Vital Signs Recent Vital Signs: Last Vital Signs Temp 98.2 F 02/13/18 04:00 Pulse 115 H 02/13/18 06:01 Resp 18 02/13/18 06:01 BP 117/90 02/13/18 06:01 Pulse Ox 97 02/13/18 06:01 - Labs Result Diagrams: 02/13/18 06:21 02/13/18 06:21 Labs: Laboratory Results - last 24 hr 02/12/18 02/12/18 02/12/18 10:35 11:08 11:08 WBC 16.8 H RBC 4.81 Hgb 14.1 Hct 41.4 MCV 86.2 MCH 29.4 MCHC 34.1 RDW 14.4 Plt Count 353 MPV 8.0 Neut % (Auto) 76.8 H Lymph % (Auto) 17.2 L [place] % (Auto) 4.9 Eos % (Auto) 0.4 Baso % (Auto) 0.7 Neut # (Auto) 12.9 H Lymph # (Auto) 2.9 [place] # (Auto) 0.8 Eos # (Auto) 0.1 Baso # (Auto) 0.1 PT INR APTT D-Dimer, Quantitative < 200 Sodium Potassium Chloride Carbon Dioxide Anion Gap BUN Creatinine Est GFR ( Amer) Est GFR (Non-Af Amer) POC Glucose (mg/dL) 256 H Random Glucose Calcium Phosphorus Magnesium Total Bilirubin AST ALT Alkaline Phosphatase Total Creatine Kinase CK-MB (Mass) Troponin I NT-Pro-B Natriuret Pep Total Protein Albumin Globulin Albumin/Globulin Ratio Lipase Blood Type Antibody Screen 02/12/18 02/12/18 02/12/18 11:08 16:35 17:17 WBC RBC Hgb Hct MCV MCH MCHC RDW Plt Count MPV Neut % (Auto) Lymph % (Auto) [place] % (Auto) Eos % (Auto) Baso % (Auto) Neut # (Auto) Lymph # (Auto) [place] # (Auto) Eos # (Auto) Baso # (Auto) PT INR APTT D-Dimer, Quantitative Sodium 137 Potassium 4.3 Chloride 97 L Carbon Dioxide 23 Anion Gap 21 H BUN 12 Creatinine 0.5 L Est GFR ( Amer) > 60 Est GFR (Non-Af Amer) > 60 POC Glucose (mg/dL) 212 H Random Glucose 335 H Calcium 9.3 Phosphorus Magnesium Total Bilirubin 0.8 AST 29 ALT 19 Alkaline Phosphatase 104 Total Creatine Kinase 332 H CK-MB (Mass) 31.1 H Troponin I 0.0880 3.1300 H* NT-Pro-B Natriuret Pep 121 Total Protein 7.2 Albumin 4.0 Globulin 3.2 Albumin/Globulin Ratio 1.2 Lipase 91 Blood Type Antibody Screen 02/12/18 02/12/18 02/12/18 18:33 19:20 19:20 WBC 14.3 H RBC 4.83 Hgb 13.7 Hct 41.6 MCV 86.1 MCH 28.3 MCHC 32.8 L RDW 14.2 Plt Count 359 MPV 7.8 Neut % (Auto) 67.1 Lymph % (Auto) 24.4 [place] % (Auto) 7.0 Eos % (Auto) 0.4 Baso % (Auto) 1.1 Neut # (Auto) 9.6 H Lymph # (Auto) 3.5 [place] # (Auto) 1.0 H Eos # (Auto) 0.1 Baso # (Auto) 0.2 PT 11.5 INR 1.0 APTT 26 D-Dimer, Quantitative Sodium 136 Potassium 4.2 Chloride 99 Carbon Dioxide 27 Anion Gap 14 BUN 13 Creatinine 0.5 L Est GFR ( Amer) > 60 Est GFR (Non-Af Amer) > 60 POC Glucose (mg/dL) Random Glucose 243 H Calcium 9.0 Phosphorus 4.4 Magnesium 1.4 L Total Bilirubin 0.8 AST 93 H D ALT 26 Alkaline Phosphatase 92 Total Creatine Kinase 655 H CK-MB (Mass) 63.9 H Troponin I 6.2300 H* NT-Pro-B Natriuret Pep Total Protein 6.5 Albumin 3.6 Globulin 3.0 Albumin/Globulin Ratio 1.2 Lipase Blood Type Antibody Screen 02/12/18 02/12/18 02/13/18 19:20 22:09 06:21 WBC 12.3 H RBC 4.84 Hgb 14.4 Hct 42.1 MCV 87.0 MCH 29.7 MCHC 34.2 RDW 14.3 Plt Count 358 MPV 8.4 Neut % (Auto) 91.7 H Lymph % (Auto) 7.3 L [place] % (Auto) 0.9 Eos % (Auto) 0.0 Baso % (Auto) 0.1 Neut # (Auto) 11.3 H Lymph # (Auto) 0.9 L [place] # (Auto) 0.1 Eos # (Auto) 0.0 Baso # (Auto) 0.0 PT INR APTT D-Dimer, Quantitative Sodium Potassium Chloride Carbon Dioxide Anion Gap BUN Creatinine Est GFR ( Amer) Est GFR (Non-Af Amer) POC Glucose (mg/dL) 280 H Random Glucose Calcium Phosphorus Magnesium Total Bilirubin AST ALT Alkaline Phosphatase Total Creatine Kinase CK-MB (Mass) Troponin I NT-Pro-B Natriuret Pep Total Protein Albumin Globulin Albumin/Globulin Ratio Lipase Blood Type B POSITIVE Antibody Screen Negative 02/13/18 06:21 WBC RBC Hgb Hct MCV MCH MCHC RDW Plt Count MPV Neut % (Auto) Lymph % (Auto) [place] % (Auto) Eos % (Auto) Baso % (Auto) Neut # (Auto) Lymph # (Auto) [place] # (Auto) Eos # (Auto) Baso # (Auto) PT INR APTT D-Dimer, Quantitative Sodium 139 Potassium 4.5 Chloride 103 Carbon Dioxide 24 Anion Gap 18 BUN 11 Creatinine 0.5 L Est GFR ( Amer) > 60 Est GFR (Non-Af Amer) > 60 POC Glucose (mg/dL) Random Glucose 348 H Calcium 8.9 Phosphorus 4.9 H Magnesium 1.6 Total Bilirubin 0.7 AST 239 H D ALT 39 Alkaline Phosphatase 89 Total Creatine Kinase CK-MB (Mass) Troponin I NT-Pro-B Natriuret Pep Total Protein 6.9 Albumin 3.6 Globulin 3.3 Albumin/Globulin Ratio 1.1 Lipase Blood Type Antibody Screen - EKG Data EKG shows normal: Sinus rhythm, ST-T waves (Presistent ST elevated with aneurysmal changes in V1-V3, Qwaves in these leads ) Assessment & Plan - Assessment and Plan (Free Text) Assessment: Left heart catheterization images viewed by me: 100% LAD stenosis, s/p PCI; LV gram shows severe LV dysfunction with aneurysmal anterior wall IMpression/Plan: 52 year old female with STEMI s/p PCI of LAD change plavix to brillenta, asprin 81, high dose of statin Acute systolic CHF Continue coreg, Evidence suggests improved morality in anterior wall NJ with RAAS blockade so start aldactone and losartan DM insulin Trend troponin until peak has been documented Obtain 2D echo to evaluate LV systoic and diastolic function Continue ICU monitoring in bed for another 24 hours then get out of bed to chair.
[2018-02-13] MEDS: (Lantus) Insulin Glargine, Recombinant SC SCH ×2 (09:09→17:29)
[2018-02-13] MEDS: Enoxaparin 40 mg Syringe SC SCH (09:10)
[2018-02-13] MEDS: (Novolin R) Insulin Human Regular 100 units/ml vial SC SCH (09:10)
[2018-02-13] MEDS: Pantoprazole 40 mg EC Tab PO SCH (09:11)
[2018-02-13 09:40] LABS: ANISOCYTOSIS SLIGHT; LYMPHOCYTE 6 % (20-40); MONOCYTE 1 % (0-10); NEUTROPHIL 93 % (50-75); PLATELET ESTIMATE NORMAL (NORMAL); TOTAL CELLS COUNTED 100
--- NOTE | 2018-02-13 09:47 | CARDCATH ---
PROCEDURE DATE: 02/12/2018 PROCEDURES: 1. Left heart catheterization. 2. Coronary angiogram. 3. Aortic root angiogram. 4. Left anterior descending coronary artery balloon angioplasty, and drug-eluting stent placement. 5. Radiological supervision and radiological interpretation of the above-mentioned procedures. CLINICAL INDICATIONS: 1. Code heart. 2. Chest pain. 3. Acute anterior wall ST elevation and myocardial infarction. 4. Hypertension. 5. Diabetes. 6. Hyperlipidemia. 7. Obesity. REFERRING PHYSICIANS: 1. Santos Ambriz MD 2. Alfredito Ledezma MD PERFORMING PHYSICIAN: Jeramy Chapa MD BRIEF CLINICAL HISTORY: Chelita Mera is a 52-year-old female with history of coronary artery disease, on medical management; diabetes; hypertension; hyperlipidemia; admitted to [facility] in the morning with severe substernal chest pain radiating to the back and jaw. The patient was originally treated by medications. However around 7 p.m., the patient has started having again severe chest pain radiating to the back and neck, 10/10. Subsequent EKG has revealed ST elevations in the anterior leads. Due to acute ST elevations in the anterior leads, code heart was activated. The patient was given aspirin, Plavix, and IV heparin. DESCRIPTION OF PROCEDURE: After informed consent, the patient was transferred to [facility]. The patient was prepped in the usual sterile fashion. Using micropuncture technique, 6-Iranian sheath was introduced into right common femoral artery. A 6-Iranian JL4 diagnostic catheter engaged into left main coronary artery. Contrast injected and left coronary angiogram was done. Then, a 6-Iranian JR4 diagnostic catheter engaged into right coronary artery. Contrast injected and right coronary angiogram was done. Prior to coronary angiogram, LV angiogram and aortic root angiogram was performed using the 6-Iranian pigtail catheter. FINDINGS: 1. Left main coronary artery has a proximal 20% to 30% concentric stenosis. 2. Proximal LAD is totally occluded. There was JAKE-0 flow distal to the occlusion. 3. Left circumflex coronary artery is patent. However, obtuse marginal 1 branch has 30% proximal stenosis. 4. Right coronary artery is dominant. Proximal right coronary artery has 75% to 80% concentric stenosis. 5. LV ejection fraction is approximately 30%. Anterior wall and apex are severely hypokinetic. EDP is 26. No gradient across the aortic valve. 6. Aortic root angiogram has demonstrated no aortic dissection or aneurysm. LAD INTERVENTION: The patient was already preloaded with aspirin, Plavix, and IV heparin. The ACT was maintained about 250. One bolus of Integrilin was given. Left main coronary artery was engaged using 6-Iranian XBLAD 3.5 guiding catheter. The proximal lesion has some difficulty in crossing due to subacute nature of the occlusion. Finally after multiple attempts, the wire crossed the lesion. The proximal LAD lesion was predilated using 2.5 x 20 compliant balloon. The patient has a long lesion from proximal to distal LAD. The entire lesion was covered using 2.5 x 38 Xience Alpine drug-eluting stent. The proximal stent was postdilated using 3 x 15 noncompliant balloon. Excellent final angiographic results with brisk JAKE-3 flow noted. The patient tolerated the procedure well. The patient will be transferred to ICU for further management including post-STEMI and post ASHLEY kept. Jeramy Chapa MD
--- NOTE | 2018-02-13 09:57 | CP.PCM.PN ---
Objective - Vital Signs/Intake and Output Vital Signs (last 24 hours): Temp Pulse Resp BP Pulse Ox 97.3 F L 113 H 10 L 126/86 97 02/13/18 08:00 02/13/18 08:01 02/13/18 08:01 02/13/18 09:11 02/13/18 08:01 Intake and Output: 02/13/18 02/13/18 06:59 18:59 Intake Total 876.3 100 Output Total 1600 600 Balance -723.7 -500 - Medications Medications: Current Medications Aspirin (Ecotrin) 81 mg PO DAILY [facility] Last Admin: 02/13/18 09:11 Dose: 81 mg Carvedilol (Coreg) 25 mg PO BID [facility] Last Admin: 02/13/18 09:11 Dose: 25 mg Clopidogrel Bisulfate (Plavix) 75 mg PO DAILY [facility] Last Admin: 02/13/18 09:11 Dose: 75 mg Enoxaparin Sodium (Lovenox) 40 mg SC DAILY [facility] Last Admin: 02/13/18 09:10 Dose: 40 mg Fluocinonide (Lidex 0.05% Cream) gm TOP BID [facility] Sodium Chloride (Sodium Chloride 0.9%) 1,000 mls @ 50 mls/hr IV .Q20H [facility] Last Admin: 02/12/18 21:15 Dose: Not Given Insulin Glargine (Lantus) 30 unit SC BID [facility] Last Admin: 02/13/18 09:09 Dose: 30 unit Insulin Human Regular (Novolin R) 8 unit SC TID [facility] Last Admin: 02/13/18 09:10 Dose: 8 unit Montelukast Sodium (Singulair) 10 mg PO DAILY [facility] Last Admin: 02/13/18 09:55 Dose: 10 mg Morphine Sulfate (Morphine Immediate Release Tab) 15 mg PO DAILY [facility] Nitroglycerin (Nitrostat Sl Tab) 0.4 mg SL Q5M PRN PRN Reason: Pain, moderate (4-7) Last Admin: 02/12/18 18:44 Dose: 0.4 mg Oxybutynin Chloride (Ditropan Xl) 10 mg PO DAILY PRN PRN Reason: Pain, severe (8-10) Oxycodone/Acetaminophen (Percocet 5/325 Mg Tab) 1 tab PO DAILY [facility] Stop: 02/16/18 10:01 Oxycodone/Acetaminophen (Percocet 5/325 Mg Tab) 1 tab PO Q4H PRN PRN Reason: chest pain Stop: 02/15/18 21:57 Last Admin: 02/13/18 05:34 Dose: 1 tab Pantoprazole Sodium (Protonix Ec Tab) 40 mg PO DAILY [facility] Last Admin: 02/13/18 09:11 Dose: 40 mg Pramipexole Dihydrochloride (Mirapex) 0.5 mg PO DAILY [facility] Pregabalin (Lyrica) 75 mg PO HS [facility] Last Admin: 02/12/18 22:11 Dose: 75 mg Rosuvastatin Calcium (Crestor) 20 mg PO HS [facility] Last Admin: 02/12/18 22:11 Dose: 20 mg - Labs Labs: 02/13/18 06:21 02/13/18 06:21 PT 11.5 SECONDS (9.7-12.2) 02/12/18 18:33 INR 1.0 02/12/18 18:33 APTT 26 SECONDS (21-34) 02/12/18 18:33 Assessment and Plan (1) Chest pain Status: Acute (2) Dizziness Status: Acute (3) Diabetes Status: Acute
[2018-02-13] MEDS ORDERED: Morphine 15 mg Immediate Release Tab PO SCH (10:00)
[2018-02-13] MEDS ORDERED: Oxycodone/Acetaminophen 5/325 mg Tab PO PRN (10:00)
[2018-02-13] MEDS: (Novolog) Insulin Aspart, Recombinant 100 u/ml 10 ml vial SC PRN ×2 (13:47→17:31)
[2018-02-13] MEDS: Hydrocortisone 1% Cream (30 GM) TOP SCH ×2 (15:55→17:19)
[2018-02-13] MEDS: Sodium Chloride 0.9% 1,000 ML IV SCH (17:21)
[2018-02-13] MEDS: (Novolog) Insulin Aspart, Recombinant 100 u/ml 10 ml vial SC SCH (17:30)
--- NOTE | 2018-02-13 19:05 | CARD ---
APPROVED REPORT EXAM: Two-dimensional and M-mode echocardiogram with Doppler and color Doppler. Other Information Quality : Technically LimitedRhythm : INDICATION Chest Pain POST IL RISK FACTORS Diabetes M-Mode DIMENSIONS Left Atrium (MM)3.26 (2.5-4.0cm)IVSd0.62 (0.7-1.1cm) Aortic Root2.43 (2.2-3.7cm)LVDd6.32 (4.0-5.6cm) Aortic Cusp Exc.1.15 (1.5-2.0cm)PWd0.69 (0.7-1.1cm) FS (%) 20 %LVDs5.03 (2.0-3.8cm) LVEF (%)41 (>50%) Mitral Valve MV E Ccdcvthk669.0cm/sMV A Raijjzwr73.4cm/sE/A ratio2.2 TDI E/Lateral E'0.0E/Medial E'0.0 Tricuspid Valve TR Peak Jjhcmics372et/sTR Peak Gr.92ijMjRBBQ25reNc LEFT VENTRICLE The Left Ventricle is borderline dilated. There is normal left ventricular wall thickness. The systolic function is mildly to moderately impaired. Regional wall motion abnormalities noted. The left ventricular diastolic function is normal. RIGHT VENTRICLE The right ventricle is normal size. There is normal right ventricular wall thickness. ATRIA The left atrium size is normal. The right atrium size is normal. AORTIC VALVE The aortic valve is normal in structure. MITRAL VALVE The mitral valve is normal in structure. TRICUSPID VALVE There is mild tricuspid regurgitation. <Conclusion> Mild to moderate LV systolic dysfunction. Dilated LV. Wall motion abnormality which is suggestive of CAD. Mild TR.
--- NOTE | 2018-02-13 20:26 | CARD ---
APPROVED REPORT EKG Measurement Heart [id number] [id number] <Conclusion> Sinus tachycardia Low voltage QRS Cannot rule out Anteroseptal infarct, age undetermined Abnormal ECG
--- NOTE | 2018-02-13 20:31 | CARD ---
APPROVED REPORT EKG Measurement Heart [id number] CT 156P54 [id number] <Conclusion> Normal sinus rhythm Low voltage QRS Cannot rule out Anteroseptal infarct, age undetermined Abnormal ECG
--- NOTE | 2018-02-13 23:13 | CP.PCM.PN ---
Subjective - Date & Time of Evaluation Date of Evaluation: 02/13/18 Time of Evaluation: 16:10 - Subjective Subjective: POST PCI Follow UP Patient seen and evaluated Denies chest pain, dyspnea and groin issues Objective - Vital Signs/Intake and Output Vital Signs (last 24 hours): Temp Pulse Resp BP Pulse Ox 98.2 F 96 H 17 90/54 L 97 02/13/18 20:00 02/13/18 22:01 02/13/18 22:01 02/13/18 22:01 02/13/18 22:01 Intake and Output: 02/13/18 02/14/18 18:59 06:59 Intake Total 340 Output Total 1000 Balance -660 - Medications Medications: Current Medications Aspirin (Ecotrin) 81 mg PO DAILY [facility] Last Admin: 02/13/18 09:11 Dose: 81 mg Carvedilol (Coreg) 25 mg PO BID [facility] Last Admin: 02/13/18 17:29 Dose: 25 mg Clopidogrel Bisulfate (Plavix) 75 mg PO DAILY [facility] Last Admin: 02/13/18 09:11 Dose: 75 mg Enoxaparin Sodium (Lovenox) 40 mg SC DAILY [facility] Last Admin: 02/13/18 09:10 Dose: 40 mg Hydrocortisone (Cortizone 1% Cream) 0 gm TOP BID [facility] Last Admin: 02/13/18 17:19 Dose: Not Given Sodium Chloride (Sodium Chloride 0.9%) 1,000 mls @ 50 mls/hr IV .Q20H [facility] Last Admin: 02/13/18 17:21 Dose: Not Given Insulin Aspart (Novolog) 8 unit SC TIDAC [facility] Last Admin: 02/13/18 17:30 Dose: 8 unit Insulin Aspart (Novolog) 0 unit SC Q6H PRN; Protocol PRN Reason: Other Last Admin: 02/13/18 17:31 Dose: 3 unit Insulin Glargine (Lantus) 30 unit SC BID [facility] Last Admin: 02/13/18 17:29 Dose: 30 unit Montelukast Sodium (Singulair) 10 mg PO DAILY [facility] Last Admin: 02/13/18 09:55 Dose: 10 mg Nitroglycerin (Nitrostat Sl Tab) 0.4 mg SL Q5M PRN PRN Reason: chest pain Oxycodone/Acetaminophen (Percocet 5/325 Mg Tab) 1 tab PO Q4 PRN PRN Reason: Pain, moderate (4-7) Stop: 02/16/18 10:01 Last Admin: 02/13/18 19:29 Dose: 1 tab Pantoprazole Sodium (Protonix Ec Tab) 40 mg PO DAILY [facility] Last Admin: 02/13/18 09:11 Dose: 40 mg Pramipexole Dihydrochloride (Mirapex) 0.5 mg PO DAILY [facility] Last Admin: 02/13/18 10:24 Dose: 0.5 mg Pregabalin (Lyrica) 75 mg PO [facility] Last Admin: 02/12/18 22:11 Dose: 75 mg Rosuvastatin Calcium (Crestor) 20 mg PO [facility] Last Admin: 02/12/18 22:11 Dose: 20 mg - Labs Labs: 02/13/18 06:21 02/13/18 06:21 PT 11.5 SECONDS (9.7-12.2) 02/12/18 18:33 INR 1.0 02/12/18 18:33 APTT 26 SECONDS (21-34) 02/12/18 18:33 - Constitutional Appears: Well - Head Exam Head Exam: ATRAUMATIC, NORMAL INSPECTION, NORMOCEPHALIC - Eye Exam Eye Exam: EOMI, Normal appearance, PERRL Pupil Exam: NORMAL ACCOMODATION, PERRL - ENT Exam ENT Exam: Mucous Membranes Moist, Normal Exam - Neck Exam Neck Exam: Full ROM, Normal Inspection - Respiratory Exam Respiratory Exam: Clear to Ausculation Bilateral, NORMAL BREATHING PATTERN - Cardiovascular Exam Cardiovascular Exam: REGULAR RHYTHM, +S1, +S2 - GI/Abdominal Exam GI & Abdominal Exam: Soft, Normal Bowel Sounds - Extremities Exam Extremities Exam: Full ROM, Normal Capillary Refill, Normal Inspection - Neurological Exam Neurological Exam: Alert, Awake, CN II-XII Intact, Oriented x3 - Psychiatric Exam Psychiatric exam: Normal Mood - Skin Skin Exam: Dry, Warm Assessment and Plan - Assessment and Plan (Free Text) Assessment: Patient s/p STEMI (Anterior) s/p LAD stent Acute systolic CHF Ischemic CMP HTN DM2 Patient stable I will sign off Further cardiac management as per Dr. Ledezma Thank you
[2018-02-14] MEDS ORDERED: Sodium Chloride 0.9% 500 ML IV ONE (02:45)
[2018-02-14] MEDS: Sodium Chloride 0.9% 1,000 ML IV SCH ×2 (02:50→17:35)
[2018-02-14] MEDS ORDERED: Sodium Chloride 0.9% 1,000 ML IV ONE ×2 (03:19→03:52)
[2018-02-14 04:18] LABS: BASO # 0.1 K/uL (0.0-0.2); BASO % 0.7 % (0.0-2.0); EOS # 0.1 K/uL (0.0-0.7); EOS % 0.4 % (0.0-4.0); LYMPH # 4.6 K/uL (1.0-4.3); LYMPH % 35.2 % (20.0-40.0); MEAN CELL VOLUME 87.4 fL (81.0-99.0); MEAN CORPUSCULAR HEMOGLOBIN 29.3 pg (27.0-31.0); MEAN CORPUSCULAR HGB CONC 33.5 g/dL (33.0-37.0); MONO # 0.9 K/uL (0.0-0.8); MONO % 7.3 % (0.0-10.0); NEUT # 7.3 K/uL (1.8-7.0); NEUT % 56.4 % (50.0-75.0); RBC 4.03 Mil/uL (3.80-5.20); RED CELL DISTRIBUTION WIDTH 14.8 % (11.5-14.5)
[2018-02-14 04:29] LABS: HEMOGLOBIN 11.8 g/dL (11.0-16.0)
[2018-02-14 04:46] LABS: ALB/GLOB RATIO 1.1 (1.0-2.1); ALBUMIN 2.9 g/dL (3.5-5.0); ALT/SGPT 36 U/L (9-52); AST/SGOT 68 U/L (14-36); BLOOD UREA NITROGEN 12 mg/dL (7-17); CALCIUM 8.3 mg/dl (8.6-10.4); GFR AFRICAN-AMERICAN > 60; GFR NON-AFRICAN AMERICAN > 60
[2018-02-14 06:59] LABS: BASO # 0.1 K/uL (0.0-0.2); BASO % 0.6 % (0.0-2.0); EOS % 0.4 % (0.0-4.0); HEMOGLOBIN 11.8 g/dL (11.0-16.0); LYMPH # 4.2 K/uL (1.0-4.3); LYMPH % 38.7 % (20.0-40.0); MEAN CELL VOLUME 87.7 fL (81.0-99.0); MEAN CORPUSCULAR HEMOGLOBIN 29.4 pg (27.0-31.0); MEAN CORPUSCULAR HGB CONC 33.5 g/dL (33.0-37.0); MEAN PLATELET VOLUME 8.1 fL (7.2-11.7); MONO # 0.8 K/uL (0.0-0.8); MONO % 7.1 % (0.0-10.0); NEUT # 5.8 K/uL (1.8-7.0); NEUT % 53.2 % (50.0-75.0); RBC 4.02 Mil/uL (3.80-5.20); RED CELL DISTRIBUTION WIDTH 14.6 % (11.5-14.5); WHITE BLOOD COUNT 10.9 K/uL (4.8-10.8)
[2018-02-14] MEDS: (Novolog) Insulin Aspart, Recombinant 100 u/ml 10 ml vial SC SCH ×3 (07:30→17:00)
--- NOTE | 2018-02-14 07:53 | CP.PCM.PN ---
Subjective - Date & Time of Evaluation Date of Evaluation: 02/14/18 Time of Evaluation: 07:50 - Subjective Subjective: Events reviewed. Hypotension overnight. Objective - Vital Signs/Intake and Output Vital Signs (last 24 hours): Temp Pulse Resp BP Pulse Ox 97.5 F L 82 16 90/49 L 100 02/14/18 04:00 02/14/18 06:01 02/14/18 06:01 02/14/18 06:01 02/14/18 07:45 Intake and Output: 02/14/18 02/14/18 06:59 18:59 Intake Total 1550 Output Total 2500 Balance -950 - Medications Medications: Current Medications Aspirin (Ecotrin) 81 mg PO DAILY [facility] Last Admin: 02/13/18 09:11 Dose: 81 mg Clopidogrel Bisulfate (Plavix) 75 mg PO DAILY [facility] Last Admin: 02/13/18 09:11 Dose: 75 mg Enoxaparin Sodium (Lovenox) 40 mg SC DAILY [facility] Last Admin: 02/13/18 09:10 Dose: 40 mg Hydrocortisone (Cortizone 1% Cream) 0 gm TOP BID [facility] Last Admin: 02/13/18 17:19 Dose: Not Given Sodium Chloride (Sodium Chloride 0.9%) 1,000 mls @ 75 mls/hr IV .[id number] [facility] Last Admin: 02/14/18 02:50 Dose: 75 mls/hr Insulin Aspart (Novolog) 8 unit SC TIDAC [facility] Last Admin: 02/13/18 17:30 Dose: 8 unit Insulin Aspart (Novolog) 0 unit SC Q6H PRN; Protocol PRN Reason: Other Last Admin: 02/13/18 17:31 Dose: 3 unit Insulin Glargine (Lantus) 30 unit SC BID [facility] Last Admin: 02/13/18 17:29 Dose: 30 unit Montelukast Sodium (Singulair) 10 mg PO DAILY [facility] Last Admin: 02/13/18 09:55 Dose: 10 mg Nitroglycerin (Nitrostat Sl Tab) 0.4 mg SL Q5M PRN PRN Reason: chest pain Pantoprazole Sodium (Protonix Ec Tab) 40 mg PO DAILY [facility] Last Admin: 02/13/18 09:11 Dose: 40 mg Pramipexole Dihydrochloride (Mirapex) 0.5 mg PO DAILY [facility] Last Admin: 02/13/18 10:24 Dose: 0.5 mg Rosuvastatin Calcium (Crestor) 20 mg PO HS [facility] Last Admin: 02/13/18 22:00 Dose: 20 mg - Labs Labs: 02/14/18 06:53 02/14/18 04:15 PT 11.5 SECONDS (9.7-12.2) 02/12/18 18:33 INR 1.0 02/12/18 18:33 APTT 26 SECONDS (21-34) 02/12/18 18:33 - Constitutional Appears: Well, Non-toxic - Respiratory Exam Respiratory Exam: Clear to Ausculation Bilateral, NORMAL BREATHING PATTERN - Cardiovascular Exam Cardiovascular Exam: REGULAR RHYTHM, RRR, +S1, +S2. absent: JVD - GI/Abdominal Exam GI & Abdominal Exam: Normal Bowel Sounds. absent: Organomegaly Assessment and Plan - Assessment and Plan (Free Text) Assessment: Left heart catheterization images viewed by me: 100% LAD stenosis, s/p PCI; LV gram shows severe LV dysfunction with aneurysmal anterior wall 2D echo images viewed by me post op: EF 40%; Anterior septal akinesis, apical akinesis, apical anterior lateral wall akinesis; Restrictive diastolic Physiology which suggests elevated left atrial pressure IMpression/Plan: 52 year old female with STEMI s/p PCI of LAD please change plavix to brillenta, asprin 81, Continue high dose of statin Hypotension likely due to rapid titration of coreg, agree with small boluses of NS but exercise extreme caution because of the baseline elevated wedge pressure on yesterdays 2D echo so she may rapidly decompensate. Acute systolic CHF holding coreg, Evidence suggests improved morality in anterior wall [place] with RAAS blockade so start aldactone and losartan when HD stable DM insulin Trend troponin until peak has been documented out of bed to chair today in ICU. Cleared for telemetry tomorrow if there is no arrhythmia on choral director
[2018-02-14] MEDS: Hydrocortisone 1% Cream (30 GM) TOP SCH ×2 (09:40→17:29)
[2018-02-14] MEDS: Enoxaparin 40 mg Syringe SC SCH (09:41)
[2018-02-14] MEDS: (Lantus) Insulin Glargine, Recombinant SC SCH ×2 (09:41→17:33)
[2018-02-14] MEDS: Pantoprazole 40 mg EC Tab PO SCH (09:41)
--- NOTE | 2018-02-15 01:09 | CP.PCM.PN ---
Subjective - Date & Time of Evaluation Date of Evaluation: 02/14/18 Time of Evaluation: 19:00 - Subjective Subjective: Pt seen and examined, Objective - Vital Signs/Intake and Output Vital Signs (last 24 hours): Temp Pulse Resp BP Pulse Ox 97.9 F 95 H 13 88/54 L 100 02/14/18 16:00 02/14/18 19:05 02/14/18 19:05 02/14/18 19:00 02/14/18 19:05 Intake and Output: 02/14/18 02/15/18 18:59 06:59 Intake Total 1400 Output Total 1500 Balance -100 - Medications Medications: Current Medications Aspirin (Ecotrin) 81 mg PO DAILY [facility] Last Admin: 02/14/18 09:41 Dose: 81 mg Clopidogrel Bisulfate (Plavix) 75 mg PO DAILY [facility] Last Admin: 02/14/18 10:00 Dose: 75 mg Enoxaparin Sodium (Lovenox) 40 mg SC DAILY [facility] Last Admin: 02/14/18 09:41 Dose: 40 mg Hydrocortisone (Cortizone 1% Cream) 0 gm TOP BID [facility] Last Admin: 02/14/18 17:29 Dose: 1 applic Sodium Chloride (Sodium Chloride 0.9%) 1,000 mls @ 75 mls/hr IV .[id number] [facility] Last Admin: 02/14/18 17:35 Dose: 75 mls/hr Insulin Aspart (Novolog) 8 unit SC TIDAC [facility] Last Admin: 02/14/18 17:00 Dose: 8 unit Insulin Aspart (Novolog) 0 unit SC Q6H PRN; Protocol PRN Reason: Other Last Admin: 02/13/18 17:31 Dose: 3 unit Insulin Glargine (Lantus) 30 unit SC BID [facility] Last Admin: 02/14/18 17:33 Dose: 30 unit Montelukast Sodium (Singulair) 10 mg PO DAILY [facility] Last Admin: 02/14/18 10:00 Dose: 10 mg Nitroglycerin (Nitrostat Sl Tab) 0.4 mg SL Q5M PRN PRN Reason: chest pain Pantoprazole Sodium (Protonix Ec Tab) 40 mg PO DAILY [facility] Last Admin: 02/14/18 09:41 Dose: 40 mg Pramipexole Dihydrochloride (Mirapex) 0.5 mg PO DAILY [facility] Last Admin: 02/14/18 10:00 Dose: 0.5 mg Rosuvastatin Calcium (Crestor) 20 mg PO HS [facility] Last Admin: 02/14/18 22:06 Dose: 20 mg - Labs Labs: 02/14/18 06:53 02/14/18 04:15 PT 11.5 SECONDS (9.7-12.2) 02/12/18 18:33 INR 1.0 02/12/18 18:33 APTT 26 SECONDS (21-34) 02/12/18 18:33 Assessment and Plan (1) Chest pain Assessment & Plan: Left heart catheterization images viewed by me: 100% LAD stenosis, s/p PCI; LV gram shows severe LV dysfunction with aneurysmal anterior wall 2D echo images viewed by me post op: EF 40%; Anterior septal akinesis, apical akinesis, apical anterior lateral wall akinesis; Restrictive diastolic Physiology which suggests elevated left atrial pressure IMpression/Plan: 52 year old female with STEMI s/p PCI of LAD please change plavix to brillenta, asprin 81, Continue high dose of statin Hypotension likely due to rapid titration of coreg, agree with small boluses of NS but exercise extreme caution because of the baseline elevated wedge pressure on yesterdays 2D echo so she may rapidly decompensate. Acute systolic CHF holding coreg, Evidence suggests improved morality in anterior wall [place] with RAAS blockade so start aldactone and losartan when HD stable DM insulin Trend troponin until peak has been documented out of bed to chair today in ICU. Cleared for telemetry tomorrow if there is no arrhythmia on secured entrance monitor Status: Acute (2) Dizziness Status: Acute (3) Diabetes Status: Acute
[2018-02-15] MEDS: Sodium Chloride 0.9% 1,000 ML IV SCH ×2 (05:25→07:44)
[2018-02-15] MEDS: (Novolog) Insulin Aspart, Recombinant 100 u/ml 10 ml vial SC SCH ×3 (07:47→17:09)
[2018-02-15] MEDS: Pantoprazole 40 mg EC Tab PO SCH (09:24)
[2018-02-15] MEDS: Enoxaparin 40 mg Syringe SC SCH (09:24)
[2018-02-15] MEDS: (Lantus) Insulin Glargine, Recombinant SC SCH ×2 (09:25→18:30)
[2018-02-15] MEDS: Hydrocortisone 1% Cream (30 GM) TOP SCH ×2 (09:31→18:12)
[2018-02-15] MEDS ORDERED: Simethicone 80 mg Chewtab PO ONE (12:00)
--- NOTE | 2018-02-15 19:42 | CP.PCM.PN ---
Subjective - Date & Time of Evaluation Date of Evaluation: 02/15/18 Time of Evaluation: 10:45 - Subjective Subjective: No complaints of CP NSR No edema No N/V Objective - Vital Signs/Intake and Output Vital Signs (last 24 hours): Temp Pulse Resp BP Pulse Ox 98.4 F 94 H 14 91/61 L 94 L 02/15/18 08:00 02/15/18 19:00 02/15/18 19:00 02/15/18 17:41 02/15/18 15:00 Intake and Output: 02/15/18 02/16/18 18:59 06:59 Intake Total 1775 75 Output Total 800 Balance 975 75 - Medications Medications: Current Medications Aspirin (Ecotrin) 81 mg PO DAILY [facility] Last Admin: 02/15/18 09:24 Dose: 81 mg Clopidogrel Bisulfate (Plavix) 75 mg PO DAILY [facility] Last Admin: 02/15/18 09:24 Dose: 75 mg Docusate Sodium (Colace) 100 mg PO BID [facility] Enoxaparin Sodium (Lovenox) 40 mg SC DAILY [facility] Last Admin: 02/15/18 09:24 Dose: 40 mg Hydrocortisone (Cortizone 1% Cream) 0 gm TOP BID [facility] Last Admin: 02/15/18 18:12 Dose: Not Given Sodium Chloride (Sodium Chloride 0.9%) 1,000 mls @ 75 mls/hr IV .[id number] [facility] Last Admin: 02/15/18 07:44 Dose: 75 mls/hr Montelukast Sodium (Singulair) 10 mg PO DAILY [facility] Last Admin: 02/15/18 09:24 Dose: 10 mg Nitroglycerin (Nitrostat Sl Tab) 0.4 mg SL Q5M PRN PRN Reason: chest pain Pantoprazole Sodium (Protonix Ec Tab) 40 mg PO DAILY [facility] Last Admin: 02/15/18 09:24 Dose: 40 mg Pramipexole Dihydrochloride (Mirapex) 0.5 mg PO DAILY [facility] Last Admin: 02/15/18 09:58 Dose: 0.5 mg Rosuvastatin Calcium (Crestor) 20 mg PO HS [facility] Last Admin: 02/14/18 22:06 Dose: 20 mg - Labs Labs: 02/14/18 06:53 02/14/18 04:15 PT 11.5 SECONDS (9.7-12.2) 02/12/18 18:33 INR 1.0 02/12/18 18:33 APTT 26 SECONDS (21-34) 02/12/18 18:33 - Constitutional Appears: Non-toxic, No Acute Distress - Head Exam Head Exam: ATRAUMATIC, NORMAL INSPECTION, NORMOCEPHALIC - Eye Exam Eye Exam: EOMI, Normal appearance, PERRL - ENT Exam ENT Exam: Mucous Membranes Moist - Neck Exam Neck Exam: Normal Inspection - Respiratory Exam Respiratory Exam: Clear to Ausculation Bilateral, NORMAL BREATHING PATTERN - Cardiovascular Exam Cardiovascular Exam: REGULAR RHYTHM, +S1, +S2. absent: JVD, Murmur - GI/Abdominal Exam GI & Abdominal Exam: Normal Bowel Sounds. absent: Organomegaly - Extremities Exam Extremities Exam: Full ROM. absent: Calf Tenderness, Pedal Edema - Neurological Exam Neurological Exam: Alert, Oriented x3 Assessment and Plan - Assessment and Plan (Free Text) Assessment: Left heart catheterization images viewed by me: 100% LAD stenosis, s/p PCI; LV gram shows severe LV dysfunction with aneurysmal anterior wall 2D echo images viewed by me post op: EF 40%; Anterior septal akinesis, apical akinesis, apical anterior lateral wall akinesis; Restrictive diastolic Physiology which suggests elevated left atrial pressure IMpression/Plan: meds: Aspirin (Ecotrin) 81 mg PO DAILY [facility] Last Admin: 02/15/18 09:24 Dose: 81 mg Clopidogrel Bisulfate (Plavix) 75 mg PO DAILY [facility] Last Admin: 02/15/18 09:24 Dose: 75 mg Hydrocortisone (Cortizone 1% Cream) 0 gm TOP BID [facility] Last Admin: 02/15/18 18:12 Dose: Not Given Pantoprazole Sodium (Protonix Ec Tab) 40 mg PO DAILY [facility] Last Admin: 02/15/18 09:24 Dose: 40 mg Rosuvastatin Calcium (Crestor) 20 mg PO HS [facility] Last Admin: 02/14/18 22:06 Dose: 20 mg 52 year old female with STEMI s/p PCI of LAD * Continue ASA 81 and Crestor 20 * Suggest Brillinta versus Plavix ---> will need reload when changing to brillinta Acute systolic CHF post SD: EF 40% with wall motion c/e ischemic cardiomyopathy holding all BP meds for low BP ---> Evidence suggests improved morality in anterior wall [place] with RAAS blockade so start Coreg, aldactone and losartan when HD stable DM insulin Trend troponin until peak has been documented out of bed to chair today in ICU. Cleared for telemetry tomorrow if there is no arrhythmia on personnel monitor
--- NOTE | 2018-02-15 23:39 | CP.PCM.PN ---
Subjective - Date & Time of Evaluation Date of Evaluation: 02/15/18 Time of Evaluation: 17:00 - Subjective Subjective: Pt seen and examined at bedside denies any chest pain, feels better s/p stent to LAD no fever, chills, [place] s/p Code heart Objective - Vital Signs/Intake and Output Vital Signs (last 24 hours): Temp Pulse Resp BP Pulse Ox 98.4 F 103 H 17 107/69 94 L 02/15/18 08:00 02/15/18 20:00 02/15/18 20:00 02/15/18 19:41 02/15/18 15:00 Intake and Output: 02/15/18 02/16/18 18:59 06:59 Intake Total 1775 75 Output Total 800 Balance 975 75 - Medications Medications: Current Medications Aspirin (Ecotrin) 81 mg PO DAILY [facility] Last Admin: 02/15/18 09:24 Dose: 81 mg Clopidogrel Bisulfate (Plavix) 75 mg PO DAILY [facility] Last Admin: 02/15/18 09:24 Dose: 75 mg Docusate Sodium (Colace) 100 mg PO BID [facility] Last Admin: 02/15/18 21:13 Dose: 100 mg Enoxaparin Sodium (Lovenox) 40 mg SC DAILY [facility] Last Admin: 02/15/18 09:24 Dose: 40 mg Hydrocortisone (Cortizone 1% Cream) 0 gm TOP BID [facility] Last Admin: 02/15/18 18:12 Dose: Not Given Sodium Chloride (Sodium Chloride 0.9%) 1,000 mls @ 75 mls/hr IV .[id number] [facility] Last Admin: 02/15/18 07:44 Dose: 75 mls/hr Montelukast Sodium (Singulair) 10 mg PO DAILY [facility] Last Admin: 02/15/18 09:24 Dose: 10 mg Nitroglycerin (Nitrostat Sl Tab) 0.4 mg SL Q5M PRN PRN Reason: chest pain Pantoprazole Sodium (Protonix Ec Tab) 40 mg PO DAILY [facility] Last Admin: 02/15/18 09:24 Dose: 40 mg Pramipexole Dihydrochloride (Mirapex) 0.5 mg PO DAILY [facility] Last Admin: 02/15/18 09:58 Dose: 0.5 mg Rosuvastatin Calcium (Crestor) 20 mg PO HS [facility] Last Admin: 02/15/18 21:13 Dose: 20 mg - Labs Labs: 02/14/18 06:53 02/14/18 04:15 PT 11.5 SECONDS (9.7-12.2) 02/12/18 18:33 INR 1.0 02/12/18 18:33 APTT 26 SECONDS (21-34) 02/12/18 18:33 - Constitutional Appears: No Acute Distress - Head Exam Head Exam: ATRAUMATIC, NORMAL INSPECTION, NORMOCEPHALIC - Eye Exam Eye Exam: EOMI, Normal appearance, PERRL Pupil Exam: NORMAL ACCOMODATION, PERRL - Respiratory Exam Respiratory Exam: Clear to Ausculation Bilateral, NORMAL BREATHING PATTERN - Cardiovascular Exam Cardiovascular Exam: REGULAR RHYTHM, +S1, +S2. absent: Murmur - GI/Abdominal Exam GI & Abdominal Exam: Soft, Normal Bowel Sounds. absent: Tenderness - Rectal Exam Rectal Exam: Deferred - Neurological Exam Neurological Exam: Alert, Awake, CN II-XII Intact, Normal Gait, Oriented x3 - Psychiatric Exam Psychiatric exam: Normal Affect, Normal Mood - Skin Skin Exam: Dry, Intact, Normal Color, Warm Assessment and Plan (1) Chest pain Status: Acute (2) Dizziness Status: Acute (3) Diabetes Status: Acute
[2018-02-16 06:52] LABS: BASO % 0.5 % (0.0-2.0); EOS # 0.1 K/uL (0.0-0.7); EOS % 0.8 % (0.0-4.0); HEMOGLOBIN 12.2 g/dL (11.0-16.0); LYMPH # 2.8 K/uL (1.0-4.3); LYMPH % 30.3 % (20.0-40.0); MEAN CELL VOLUME 87.6 fL (81.0-99.0); MEAN CORPUSCULAR HEMOGLOBIN 29.2 pg (27.0-31.0); MEAN CORPUSCULAR HGB CONC 33.3 g/dL (33.0-37.0); MEAN PLATELET VOLUME 8.2 fL (7.2-11.7); MONO # 0.5 K/uL (0.0-0.8); MONO % 5.7 % (0.0-10.0); NEUT # 5.7 K/uL (1.8-7.0); NEUT % 62.7 % (50.0-75.0); RBC 4.18 Mil/uL (3.80-5.20); RED CELL DISTRIBUTION WIDTH 14.4 % (11.5-14.5); WHITE BLOOD COUNT 9.2 K/uL (4.8-10.8)
[2018-02-16 07:04] LABS: ALB/GLOB RATIO 1.1 (1.0-2.1); ALBUMIN 3.1 g/dL (3.5-5.0); ALT/SGPT 80 U/L (9-52); AST/SGOT 86 U/L (14-36); BLOOD UREA NITROGEN 6 mg/dL (7-17); CALCIUM 8.7 mg/dl (8.6-10.4); GFR AFRICAN-AMERICAN > 60; GFR NON-AFRICAN AMERICAN > 60
[2018-02-16] MEDS: Sodium Chloride 0.9% 1,000 ML IV SCH (08:16)
[2018-02-16] MEDS: Hydrocortisone 1% Cream (30 GM) TOP SCH (09:39)
[2018-02-16] MEDS: Enoxaparin 40 mg Syringe SC SCH (09:39)
[2018-02-16] MEDS: Pantoprazole 40 mg EC Tab PO SCH (09:41)
--- NOTE | 2018-02-16 09:57 | CP.PCM.PN ---
Subjective - Date & Time of Evaluation Date of Evaluation: 02/16/18 Time of Evaluation: 09:54 - Subjective Subjective: No Cardiac complaints BP normal NSR No fevers or chills Objective - Vital Signs/Intake and Output Vital Signs (last 24 hours): Temp Pulse Resp BP Pulse Ox 98.6 F 95 H 16 115/81 97 02/16/18 08:00 02/16/18 08:00 02/16/18 08:00 02/16/18 07:41 02/16/18 07:41 Intake and Output: 02/16/18 02/16/18 06:59 18:59 Intake Total 1575 Output Total 600 Balance 975 - Medications Medications: Current Medications Aspirin (Ecotrin) 81 mg PO DAILY [facility] Last Admin: 02/16/18 09:39 Dose: 81 mg Clopidogrel Bisulfate (Plavix) 75 mg PO DAILY [facility] Last Admin: 02/16/18 09:40 Dose: 75 mg Docusate Sodium (Colace) 100 mg PO BID [facility] Last Admin: 02/16/18 09:38 Dose: 100 mg Enoxaparin Sodium (Lovenox) 40 mg SC DAILY [facility] Last Admin: 02/16/18 09:39 Dose: 40 mg Hydrocortisone (Cortizone 1% Cream) 0 gm TOP BID [facility] Last Admin: 02/16/18 09:39 Dose: 1 applic Sodium Chloride (Sodium Chloride 0.9%) 1,000 mls @ 75 mls/hr IV .[id number] [facility] Last Admin: 02/16/18 08:16 Dose: Not Given Montelukast Sodium (Singulair) 10 mg PO DAILY [facility] Last Admin: 02/16/18 09:41 Dose: 10 mg Nitroglycerin (Nitrostat Sl Tab) 0.4 mg SL Q5M PRN PRN Reason: chest pain Pantoprazole Sodium (Protonix Ec Tab) 40 mg PO DAILY [facility] Last Admin: 02/16/18 09:41 Dose: 40 mg Pramipexole Dihydrochloride (Mirapex) 0.5 mg PO DAILY [facility] Last Admin: 02/16/18 09:42 Dose: 0.5 mg Rosuvastatin Calcium (Crestor) 20 mg PO HS [facility] Last Admin: 02/15/18 21:13 Dose: 20 mg - Labs Labs: 02/16/18 06:44 02/16/18 06:41 PT 11.5 SECONDS (9.7-12.2) 02/12/18 18:33 INR 1.0 02/12/18 18:33 APTT 26 SECONDS (21-34) 02/12/18 18:33 - Constitutional Appears: No Acute Distress - Head Exam Head Exam: ATRAUMATIC, NORMAL INSPECTION, NORMOCEPHALIC - Eye Exam Eye Exam: EOMI, Normal appearance, PERRL - ENT Exam ENT Exam: Mucous Membranes Moist - Respiratory Exam Respiratory Exam: Clear to Ausculation Bilateral. absent: Rhonchi, Wheezes - Cardiovascular Exam Cardiovascular Exam: REGULAR RHYTHM, +S1, +S2 - GI/Abdominal Exam GI & Abdominal Exam: Normal Bowel Sounds. absent: Organomegaly - Extremities Exam Extremities Exam: Normal Inspection. absent: Calf Tenderness, Pedal Edema - Neurological Exam Neurological Exam: Alert, Awake, Oriented x3 Assessment and Plan - Assessment and Plan (Free Text) Assessment: Left heart catheterization images viewed by me: 100% LAD stenosis, s/p PCI; LV gram shows severe LV dysfunction with aneurysmal anterior wall 2D echo images viewed by me post op: EF 40%; Anterior septal akinesis, apical akinesis, apical anterior lateral wall akinesis; Restrictive diastolic Physiology which suggests elevated left atrial pressure IMpression/Plan: meds: Aspirin (Ecotrin) 81 mg PO DAILY [facility] Clopidogrel Bisulfate (Plavix) 75 mg PO DAILY [facility] Pantoprazole Sodium (Protonix Ec Tab) 40 mg PO DAILY [facility] Rosuvastatin Calcium (Crestor) 20 mg PO HS [facility] 52 year old female with STEMI s/p PCI of LAD: EKG NSR, low voltage, anterior infarct old. * Continue ASA 81 and Crestor 20 * Suggest Brillinta versus Plavix ---> will need reload when changing to brillinta Acute systolic CHF post PA: EF 40% with wall motion c/e ischemic cardiomyopathy BP improved... ---> Evidence suggests improved morality in anterior wall PA with RAAS blockade so start Coreg, aldactone and losartan when HD stable DM insulin out of bed to chair today in ICU. D/C planning once tolerating BB.
[2018-02-16 12:26] VITALS: O2SAT 94
--- NOTE | 2018-02-16 15:23 | CP.PCM.PN ---
Subjective - Date & Time of Evaluation Date of Evaluation: 02/16/18 Time of Evaluation: 15:23 - Subjective Subjective: PATIENT WAS ADMITTED FOR CHEST PAIN AAOX 3; SITIING AT THE BEDSIDE; DENIES ANY CHEST DISCOMFORT NO SIGN OF DISTRESS NOTED Objective - Vital Signs/Intake and Output Vital Signs (last 24 hours): Temp Pulse Resp BP Pulse Ox 98.4 F 94 H 18 89/53 L 94 L 02/16/18 12:00 02/16/18 14:00 02/16/18 14:00 02/16/18 13:42 02/16/18 11:42 Intake and Output: 02/16/18 02/16/18 06:59 18:59 Intake Total 1575 Output Total 600 Balance 975 - Medications Medications: Current Medications Aspirin (Ecotrin) 81 mg PO DAILY [facility] Last Admin: 02/16/18 09:39 Dose: 81 mg Carvedilol (Coreg) 3.125 mg PO BID [facility] Docusate Sodium (Colace) 100 mg PO BID [facility] Last Admin: 02/16/18 09:38 Dose: 100 mg Enoxaparin Sodium (Lovenox) 40 mg SC DAILY [facility] Last Admin: 02/16/18 09:39 Dose: 40 mg Insulin Glargine (Lantus) 10 unit SC HS [facility] Metformin HCl (Glucophage) 850 mg PO BID [facility] Montelukast Sodium (Singulair) 10 mg PO DAILY [facility] Last Admin: 02/16/18 09:41 Dose: 10 mg Nitroglycerin (Nitrostat Sl Tab) 0.4 mg SL Q5M PRN PRN Reason: chest pain Pantoprazole Sodium (Protonix Ec Tab) 40 mg PO DAILY [facility] Last Admin: 02/16/18 09:41 Dose: 40 mg Pramipexole Dihydrochloride (Mirapex) 0.5 mg PO DAILY [facility] Last Admin: 02/16/18 09:42 Dose: 0.5 mg Rosuvastatin Calcium (Crestor) 20 mg PO HS [facility] Last Admin: 02/15/18 21:13 Dose: 20 mg Spironolactone (Aldactone) 25 mg PO BID [facility] Ticagrelor (Brilinta) 90 mg PO BID [facility] - Labs Labs: 02/16/18 06:44 02/16/18 06:41 PT 11.5 SECONDS (9.7-12.2) 02/12/18 18:33 INR 1.0 02/12/18 18:33 APTT 26 SECONDS (21-34) 02/12/18 18:33 Assessment and Plan - Assessment and Plan (Free Text) Assessment: PATIENT SEEN AND EXAMINED AT THE BEDSIDE LUNG SOUND CLEAR RAMY AFEBRILE/ LAB WNL DISCUSS WITH DR SANTACRUZ---AGREE TO SEND PATIENT ON COREG AND ALDACTONE ONLY THIS TIME DUE TO BLOOD PRESSURE AND WILL ADDRESS/ OR ADD ANY MED AT HIS OFFICE VISIT NEXT WEEK DISCUSS WITH DR ROWE WHO AGREE AND CLEAR PATIENT FOR DC PATIENT NEED TO F/U WITH HER OWN CLOTH B[facility] PACKER OUT PATIENT FOLLOW UP WITH DR SANTACRUZ NEXT WEEK AT HIS OFFICE ---CALL FOR APPOINTMENT FOLLOW UP WITH DR ROWE AT HIS OFFICE ---CALL FOR APPOINTMENT CONTINUE ALL YOUR HOME MEDICATION ORDER NEW PRESCRIPTION GIVEN COREG 3.125 MG BY MOUTH TWICE A DAY METFORMIN 850 MG BY MOUTH TWICE A DAY ALDACTONE 12.5 MG BY MOUTH TWICE A DAY BRILINTA 90 MG BY MOUTH TWICE A DAY LANTUS 15 U TWICE SUB Q ACTIVITY TOLERATED CALL DR SANTACRUZ OR DR ROWE OR GO TO THE EMERGENCY ROOM IF SYMPTOMS RETURN OR WORSENING DISCUSS WITH PATIENT WHO AGREE AND VERBALIZED UNDERSTANDING
[2018-02-16 16:27] VITALS: BP 129/85; PULSE 105; RESP 15
[2018-02-16 16:28] VITALS: TEMP 98.3
--- NOTE | 2018-02-16 16:41 | CP.PCM.PN ---
Subjective - Date & Time of Evaluation Date of Evaluation: 02/16/18 Time of Evaluation: 18:00 - Subjective Subjective: Pt seen and examined at bedside Objective - Vital Signs/Intake and Output Vital Signs (last 24 hours): Temp Pulse Resp BP Pulse Ox 98.3 F 105 H 15 129/85 94 L 02/16/18 16:00 02/16/18 15:20 02/16/18 15:20 02/16/18 15:42 02/16/18 11:42 Intake and Output: 02/16/18 02/16/18 06:59 18:59 Intake Total 1575 Output Total 600 Balance 975 - Medications Medications: Current Medications Aspirin (Ecotrin) 81 mg PO DAILY [facility] Last Admin: 02/16/18 09:39 Dose: 81 mg Carvedilol (Coreg) 3.125 mg PO BID [facility] Docusate Sodium (Colace) 100 mg PO BID [facility] Last Admin: 02/16/18 09:38 Dose: 100 mg Enoxaparin Sodium (Lovenox) 40 mg SC DAILY [facility] Last Admin: 02/16/18 09:39 Dose: 40 mg Insulin Glargine (Lantus) 10 unit SC [facility] Metformin HCl (Glucophage) 850 mg PO BID [facility] Montelukast Sodium (Singulair) 10 mg PO DAILY [facility] Last Admin: 02/16/18 09:41 Dose: 10 mg Nitroglycerin (Nitrostat Sl Tab) 0.4 mg SL Q5M PRN PRN Reason: chest pain Pantoprazole Sodium (Protonix Ec Tab) 40 mg PO DAILY [facility] Last Admin: 02/16/18 09:41 Dose: 40 mg Pramipexole Dihydrochloride (Mirapex) 0.5 mg PO DAILY [facility] Last Admin: 02/16/18 09:42 Dose: 0.5 mg Rosuvastatin Calcium (Crestor) 20 mg PO HS [facility] Last Admin: 02/15/18 21:13 Dose: 20 mg Spironolactone (Aldactone) 25 mg PO BID [facility] Ticagrelor (Brilinta) 90 mg PO BID [facility] - Labs Labs: 02/16/18 06:44 02/16/18 06:41 PT 11.5 SECONDS (9.7-12.2) 02/12/18 18:33 INR 1.0 02/12/18 18:33 APTT 26 SECONDS (21-34) 02/12/18 18:33 Assessment and Plan (1) Chest pain Status: Acute (2) Dizziness Status: Acute (3) Diabetes Status: Acute
[2018-02-16] MEDS ORDERED: (Lantus) Insulin Glargine, Recombinant SC SCH (22:00)
--- NOTE | 2018-02-17 08:48 | CARD ---
APPROVED REPORT EKG Measurement Heart [id number] 150P64 [id number] <Conclusion> Normal sinus rhythm Low voltage QRS ST & T wave abnormality, consider lateral ischemia Abnormal ECG
== END 2018-02-16 18:40 | disposition home or self-care (01) | DRG 550 ==
LOC: C.ER 10:30 → C.9E 12:30 → UNDOADMOB 12:30 → C.9E 13:35 → C.6T 13:35 → C.9I 19:00 → UNDOADMOB 19:00 → C.9I 19:04 → C.6T 19:04 → OBSVTOIN 21:04 → INTOOBSV 21:04 → OBSVTOIN 02-13 10:39 → C.6T 02-13 10:39 → C.9I 02-13 10:39
PROVIDERS: ADMIT Internal Medicine; ATTEND Internal Medicine
PROC: 027034Z Dilation of Coronary Artery, One Artery with Drug-eluting Intraluminal Device, Percutaneous Approach (ICD-10-PCS; principal; 2018-02-12)
PROC: 4A023N7 Measurement of Cardiac Sampling and Pressure, Left Heart, Percutaneous Approach (ICD-10-PCS; 2018-02-12)
PROC: B2151ZZ Fluoroscopy of Left Heart using Low Osmolar Contrast (ICD-10-PCS; 2018-02-12)
PROC: B2111ZZ Fluoroscopy of Multiple Coronary Arteries using Low Osmolar Contrast (ICD-10-PCS; 2018-02-12)
DX: I21.09 ST elevation (STEMI) myocardial infarction involving other coronary artery of anterior wall (principal); I50.43 Acute on chronic combined systolic (congestive) and diastolic (congestive) heart failure; I11.0 Hypertensive heart disease with heart failure; E11.40 Type 2 diabetes mellitus with diabetic neuropathy, unspecified; I25.10 Atherosclerotic heart disease of native coronary artery without angina pectoris; I25.5 Ischemic cardiomyopathy; I25.82 Chronic total occlusion of coronary artery; G25.81 Restless legs syndrome; E78.5 Hyperlipidemia, unspecified; E78.00 Pure hypercholesterolemia, unspecified; J45.909 Unspecified asthma, uncomplicated; S09.90XA Unspecified injury of head, initial encounter; W01.0XXA Fall on same level from slipping, tripping and stumbling without subsequent striking against object, initial encounter; E66.9 Obesity, unspecified; Z79.02 Long term (current) use of antithrombotics/antiplatelets; Z79.82 Long term (current) use of aspirin; Z87.891 Personal history of nicotine dependence; Z91.81 History of falling; Z98.51 Tubal ligation status; Z79.899 Other long term (current) drug therapy; Z79.4 Long term (current) use of insulin

== ENCOUNTER 2018-04-03 22:18 | Observation (INO) | payer OTHER ==
[2018-04-03 22:18] VITALS: BMI 36.6
[2018-04-03 23:26] LABS: BASO # 0.1 K/uL (0.0-0.2); BASO % 1.1 % (0.0-2.0); EOS # 0.1 K/uL (0.0-0.7); HEMOGLOBIN 11.5 g/dL (11.0-16.0); LYMPH # 2.3 K/uL (1.0-4.3); LYMPH % 30.9 % (20.0-40.0); MEAN CELL VOLUME 88.3 fL (81.0-99.0); MEAN CORPUSCULAR HEMOGLOBIN 29.7 pg (27.0-31.0); MEAN CORPUSCULAR HGB CONC 33.6 g/dL (33.0-37.0); MEAN PLATELET VOLUME 7.8 fL (7.2-11.7); MONO # 0.5 K/uL (0.0-0.8); MONO % 6.2 % (0.0-10.0); NEUT # 4.4 K/uL (1.8-7.0); NEUT % 59.8 % (50.0-75.0); RBC 3.89 Mil/uL (3.80-5.20); RED CELL DISTRIBUTION WIDTH 15.7 % (11.5-14.5); WHITE BLOOD COUNT 7.4 K/uL (4.8-10.8)
[2018-04-03 23:34] LABS: INR 1.1; PROTHROMBIN TIME 11.6 SECONDS (9.7-12.2)
[2018-04-03 23:47] LABS: ALB/GLOB RATIO 1.5 (1.0-2.1); ALBUMIN 3.8 g/dL (3.5-5.0); ALT/SGPT 34 U/L (9-52); AST/SGOT 18 U/L (14-36); BLOOD UREA NITROGEN 12 mg/dL (7-17); CALCIUM 8.7 mg/dl (8.6-10.4); GFR AFRICAN-AMERICAN > 60; GFR NON-AFRICAN AMERICAN > 60
[2018-04-03 23:54] LABS: B-TYPE NATRIURETIC PEPTIDE 1160 pg/mL (0-900)
--- NOTE | 2018-04-04 00:33 | C.PDOC ---
Time Seen by Provider: 04/03/18 22:43 Chief Complaint (Nursing): Chest Pain History Per: Patient Onset/Duration Of Symptoms: Hrs (1), Sudden Onset Current Symptoms Are (Timing): Still Present Severity: Moderate Quality: "Pain" Associated Symptoms: Nausea Modifying Factors: Other Indicated Below Nitro Therapy Administered: 1, Per Own Supply, Partial Relief Additional History Per: Prior Records Past Medical History Reviewed: Historical Data, Nursing Documentation, Vital Signs Vital Signs: Last Vital Signs Temp 98.2 F 04/03/18 22:32 Pulse 100 H 04/03/18 22:32 Resp 18 04/03/18 22:32 BP 119/71 04/03/18 22:32 Pulse Ox 99 04/03/18 22:32 - Medical History PMH: Anxiety, Asthma, CAD, Cardia Arrhythmia, Depression, Diabetes, Gastritis, HTN, Hypercholesterolemia, Hyperlipidemia, Chronic Pain (Back (since fall in February 2015)) Surgical History: Coronary Stent (X1), Endoscopy - [facility] Procedures DILATION OF 1 COR ART WITH DRUG-ELUT INTRA, PERC APPROACH (02/13/18) FLUOROSCOPY OF LEFT HEART USING LOW OSMOLAR CONTRAST (02/13/18) FLUOROSCOPY OF MULT COR ART USING L OSM CONTRAST (02/13/18) MEASURE OF CARDIAC SAMPL & PRESSURE, L HEART, PERC APPROACH (02/13/18) Family History: States: Unknown Family Hx - Social History Hx Tobacco Use: No Hx Alcohol Use: No Hx Substance Use: No - Immunization History Hx Tetanus Toxoid Vaccination: No Hx Influenza Vaccination: No Hx Pneumococcal Vaccination: No Review Of Systems Except As Marked, All Systems Reviewed And Found Negative. Constitutional: Negative for: Fever, Weakness Cardiovascular: Positive for: Chest Pain Respiratory: Positive for: SOB with Excertion. Negative for: Hemoptysis Gastrointestinal: Positive for: Nausea. Negative for: Vomiting Skin: Negative for: Rash Neurological: Negative for: Weakness, Numbness Physical Exam - Physical Exam Appears: Non-toxic, No Acute Distress Skin: Normal Color, Warm, Dry, No Rash Head: Atraumatic, Normacephalic Eye(s): bilateral: PERRL, EOMI Neck: Normal ROM, Supple Cardiovascular: Rhythm Regular Respiratory: Normal Breath Sounds, No Accessory Muscle Use Gastrointestinal/Abdominal: Soft, No Tenderness Back: No CVA Tenderness Extremity: Normal ROM, No Calf Tenderness Neurological/Psych: Oriented x3, Normal Motor, Normal Sensation ED Course And Treatment - Laboratory Results Result Diagrams: 04/03/18 23:23 04/03/18 23:23 ECG: Interpreted By Me, Viewed By Me ECG Rhythm: Sinus Rhythm, Nonspecific Changes ECG Interpretation: No Acute Changes Rate From EC O2 Sat by Pulse Oximetry: 99 Pulse Ox Interpretation: Normal - Radiology CXR: Interpreted by Me, Viewed By Me CXR Interpretation: Yes: No Acute Disease Progress - Interventions Interventions:: Observation - Medications Administered Oral: Aspirin, Other (Brillinta) - Data Reviewed Data Reviewed: Lab, Diagnostic imaging, Old records - Patient Status Patient status: Mostly improved - Continuity of Care Discussed patient case with:: Patient, ED Nurse, On-call PMD-pt unassigned Medical Decision Making Medical Decision Making: Pt states that she ran out of her Brillinta 3 days ago. Disposition Discussed With : Sharon Sanchez Comment: She accepted pt on her service. Doctor Will See Patient In The: Hospital Counseled Patient/Family Regarding: Studies Performed, Diagnosis - Disposition Disposition: HOSPITALIZED Disposition Time: 00:34 Condition: FAIR - Clinical Impression Clinical Impression: Chest pain, CAD (coronary artery disease)
[2018-04-04] MEDS: (Novolog) Insulin Aspart, Recombinant 100 u/ml 10 ml vial SC SCH ×4 (08:25→21:36)
[2018-04-04] MEDS: (Novolin 70/30) NPH/Regular 70/30 Units/ml 10 ml vial SC SCH ×3 (08:25→17:07)
--- NOTE | 2018-04-04 09:30 | RAD ---
PROCEDURE: CHEST RADIOGRAPH, 1 VIEW HISTORY: chest pain COMPARISON: 02/12/2018 FINDINGS: LUNGS: Clear. PLEURA: No pneumothorax or pleural fluid seen. CARDIOVASCULAR: No radiographic findings to suggest acute or significant cardiovascular disease. OSSEOUS STRUCTURES: No significant abnormalities. VISUALIZED UPPER ABDOMEN: Normal. OTHER FINDINGS: None. IMPRESSION: No active disease. No acute/significant interval changes.
[2018-04-04] MEDS: Enoxaparin 30 mg Syringe SC SCH (09:50)
[2018-04-04] MEDS: Pantoprazole 40 mg EC Tab PO SCH (09:50)
[2018-04-04] MEDS: Ranolazine 500 mg Extended Release Tablets PO SCH ×2 (09:50→17:57)
[2018-04-04] MEDS ORDERED: Albuterol 0.083% Inhal Sol (2.5 mg/3 mL) UD INH PRN (10:00)
--- NOTE | 2018-04-05 00:03 | CP.PCM.HP ---
History of Present Illness - History of Present Illness History of Present Illness: 53 years old lady with pmh of Anxiety, Asthma, CAD, Cardia Arrhythmia, Depression, Diabetes, Gastritis, HTN, Hypercholesterolemia, Hyperlipidemia, Chronic Pain (Back (since fall in February 2015)) had Coronary Stent (X1), Endoscopy came in [facility] with chest pain , no sob , no hdz , no dizzynes Present on Admission - Present on Admission Any Indicators Present on Admission: Yes Review of Systems - Constitutional Constitutional: As Per HPI - EENT Eyes: As Per HPI Ears: As Per HPI Nose/Mouth/Throat: Nasal Trauma - Breasts Breasts: As Per HPI - Cardiovascular Cardiovascular: Chest Pain with Activity - Respiratory Respiratory: As Per HPI - Gastrointestinal Gastrointestinal: As Per HPI - Endocrine Endocrine: As Per HPI Past Patient History - Infectious Disease Hx of Infectious Diseases: None - Past Medical History & Family History Past Medical History?: Yes - Past Social History Smoking Status: Never Smoked - CARDIAC Hx Cardia Arrhythmia: Yes Hx Hypercholesterolemia: Yes Hx Hypertension: Yes - PULMONARY Hx Asthma: Yes - NEUROLOGICAL Hx Neurological Disorder: Yes (DIABETIC NEUROPATHY, RESTLESS LEG SYNDROME) Hx Vertigo: Yes Other/Comment: Nausea/Vomiting, unknown cause - HEENT Hx HEENT Problems: No - RENAL Hx Chronic Kidney Disease: No - ENDOCRINE/METABOLIC Hx Endocrine Disorders: Yes Hx Diabetes Mellitus Type 2: Yes - HEMATOLOGICAL/ONCOLOGICAL Hx Blood Disorders: No - INTEGUMENTARY Hx Dermatological Problems: No - MUSCULOSKELETAL/RHEUMATOLOGICAL Hx Falls: No - GASTROINTESTINAL Hx Gastritis: Yes - GENITOURINARY/GYNECOLOGICAL Hx Genitourinary Disorders: No - PSYCHIATRIC Hx Substance Use: No - SURGICAL HISTORY Hx Coronary Stent: Yes (X1) - ANESTHESIA Hx Anesthesia: Yes Hx Anesthesia Reactions: Yes Hx Malignant Hyperthermia: No Has any member of the family had a problem w/ anesthesia?: No Meds Allergies/Adverse Reactions: Allergies Allergy/AdvReac Type Severity Reaction Status Date / Time No Known Allergies Allergy Verified 04/03/18 22:35 Physical Exam - Head Exam Head Exam: ATRAUMATIC, NORMAL INSPECTION, NORMOCEPHALIC - Eye Exam Eye Exam: EOMI Pupil Exam: NORMAL ACCOMODATION, PERRL - ENT Exam ENT Exam: Mucous Membranes Dry - Neck Exam Neck exam: Positive for: Full Rom - Respiratory Exam Respiratory Exam: Clear to Auscultation Bilateral, NORMAL BREATHING PATTERN - Cardiovascular Exam Cardiovascular Exam: REGULAR RHYTHM, RRR, +S1, +S2 - GI/Abdominal Exam GI & Abdominal Exam: Normal Bowel Sounds - Psychiatric Exam Psychiatric exam: Normal Affect - Skin Skin Exam: Normal Color Results - Vital Signs Recent Vital Signs: Last Vital Signs Temp 98.2 F 04/04/18 15:06 Pulse 91 H 04/04/18 22:00 Resp 20 04/04/18 15:06 BP 94/60 L 04/04/18 22:00 Pulse Ox 98 04/04/18 15:06 - Labs Result Diagrams: 04/03/18 23:23 04/03/18 23:23 Labs: Laboratory Results - last 24 hr 04/03/18 04/04/18 04/04/18 23:23 00:48 06:50 POC Glucose (mg/dL) 140 H 243 H CK-MB (Mass) 1.40 Troponin I 0.0260 NT-Pro-B Natriuret Pep 1160 H 04/04/18 04/04/18 04/04/18 11:16 16:26 21:28 POC Glucose (mg/dL) 214 H 154 H 94 CK-MB (Mass) Troponin I NT-Pro-B Natriuret Pep Assessment & Plan - Assessment and Plan (Free Text) Assessment: 53byears old female with Anxiety, Asthma, CAD, Cardia Arrhythmia, Depression, Diabetes, Gastritis, HTN, Hypercholesterolemia, Hyperlipidemia, Chronic Pain ( Back (since fall in February 2015)) Coronary Stent (X1), Endoscopy came with chest beck like pressure , cardio consult called Plan: as above - Date & Time Date: 04/04/18
[2018-04-05] MEDS: (Novolog) Insulin Aspart, Recombinant 100 u/ml 10 ml vial SC SCH ×4 (08:24→21:50)
[2018-04-05] MEDS: (Novolin 70/30) NPH/Regular 70/30 Units/ml 10 ml vial SC SCH ×3 (08:25→17:25)
[2018-04-05 08:33] LABS: IRON 35 ug/dL (37-170)
[2018-04-05 08:43] LABS: % IRON SATURATION 10 (20-55); TOTAL IRON BINDING CAPACITY 372 ug/dL (250-450)
[2018-04-05 09:43] LABS: FOLATE 18.3 ng/mL
[2018-04-05] MEDS: Pantoprazole 40 mg EC Tab PO SCH (10:43)
[2018-04-05] MEDS: Ranolazine 500 mg Extended Release Tablets PO SCH ×2 (10:43→17:21)
[2018-04-05] MEDS: Enoxaparin 30 mg Syringe SC SCH (10:44)
[2018-04-05] MEDS: cefTRIAXone IV 1 gm in Dextros 50 ML IVPB SCH (12:06)
--- NOTE | 2018-04-05 16:16 | CP.PCM.CON ---
History of Present Illness - History of Present Illness History of Present Illness: 53 year old female with chronic medical problems 1. Ischemic cardiomyopathy 2. ASHD s/p PCI of LAD For STEMI 02/2018 3. DM is chronic and uncontrolled She is presenting to [facility] for atypical chest pain and indigestion Review of Systems - Review of Systems All systems: reviewed and no additional remarkable complaints except Past Patient History - Infectious Disease Hx of Infectious Diseases: None - Past Medical History & Family History Past Medical History?: Yes - Past Social History Smoking Status: Never Smoked - CARDIAC Hx Cardia Arrhythmia: Yes Hx Hypercholesterolemia: Yes Hx Hypertension: Yes - PULMONARY Hx Asthma: Yes - NEUROLOGICAL Hx Neurological Disorder: Yes (DIABETIC NEUROPATHY, RESTLESS LEG SYNDROME) Hx Vertigo: Yes Other/Comment: Nausea/Vomiting, unknown cause - HEENT Hx HEENT Problems: No - RENAL Hx Chronic Kidney Disease: No - ENDOCRINE/METABOLIC Hx Endocrine Disorders: Yes Hx Diabetes Mellitus Type 2: Yes - HEMATOLOGICAL/ONCOLOGICAL Hx Blood Disorders: No - INTEGUMENTARY Hx Dermatological Problems: No - MUSCULOSKELETAL/RHEUMATOLOGICAL Hx Falls: No - GASTROINTESTINAL Hx Gastritis: Yes - GENITOURINARY/GYNECOLOGICAL Hx Genitourinary Disorders: No - PSYCHIATRIC Hx Substance Use: No - SURGICAL HISTORY Hx Coronary Stent: Yes (X1) - ANESTHESIA Hx Anesthesia: Yes Hx Anesthesia Reactions: Yes Hx Malignant Hyperthermia: No Has any member of the family had a problem w/ anesthesia?: No Meds Allergies/Adverse Reactions: Allergies Allergy/AdvReac Type Severity Reaction Status Date / Time No Known Allergies Allergy Verified 04/03/18 22:35 - Medications Medications: Current Medications Albuterol Sulfate (Albuterol 0.083% Inhal Darcy (2.5 Mg/3 Ml) Ud) 2.5 mg INH RBID PRN PRN Reason: Shortness of Breath Carvedilol (Coreg) 3.125 mg PO BID [facility] Last Admin: 04/05/18 10:43 Dose: 3.125 mg Duloxetine HCl (Cymbalta) 60 mg PO DAILY [facility] Last Admin: 04/05/18 10:44 Dose: 60 mg Enoxaparin Sodium (Lovenox) 30 mg SC DAILY [facility] Last Admin: 04/05/18 10:44 Dose: 30 mg Gabapentin (Neurontin) 100 mg PO HS [facility] Ceftriaxone Sodium (Rocephin Iv 1 Gm Duplex) 50 mls @ 100 mls/hr IVPB Q24H [facility] PRN Reason: Protocol Last Admin: 04/05/18 12:06 Dose: 100 mls/hr Insulin Aspart (Novolog) 0 unit SC ACHS [facility] PRN Reason: Protocol Last Admin: 04/05/18 11:32 Dose: Not Given Insulin Human Isoph/Insulin Regular (Novolin 70/30 (70/30 Units/Ml) 10 Ml) 15 units SC TIDAC [facility] Last Admin: 04/05/18 11:32 Dose: Not Given Metformin HCl (Glucophage) 1,000 mg PO BIDAC [facility] Last Admin: 04/05/18 08:25 Dose: 1,000 mg Montelukast Sodium (Singulair) 10 mg PO HS [facility] Last Admin: 04/04/18 21:48 Dose: 10 mg Ondansetron HCl (Zofran Inj) 4 mg IVP Q6 PRN PRN Reason: Nausea/Vomiting Last Admin: 04/05/18 12:06 Dose: 4 mg Oxybutynin Chloride (Ditropan Tab) 5 mg PO DAILY [facility] Last Admin: 04/05/18 10:44 Dose: 5 mg Pantoprazole Sodium (Protonix Ec Tab) 40 mg PO DAILY [facility] Last Admin: 04/05/18 10:43 Dose: 40 mg Pneumococcal Polyvalent Vaccine (Pneumovax 23 Vaccine) 0.5 ml IM .ONCE ONE Stop: 04/06/18 10:01 Pramipexole Dihydrochloride (Mirapex) 1.5 mg PO BID [facility] Last Admin: 04/05/18 10:44 Dose: 1.5 mg Pregabalin (Lyrica) 75 mg PO BID [facility] Ranolazine (Ranexa) 1,000 mg PO BID [facility] Last Admin: 04/05/18 10:43 Dose: 1,000 mg Rosuvastatin Calcium (Crestor) 20 mg PO HS [facility] Last Admin: 04/04/18 21:48 Dose: 20 mg Spironolactone (Aldactone) 25 mg PO BID [facility] Last Admin: 04/05/18 10:43 Dose: 25 mg Ticagrelor (Brilinta) 90 mg PO BID [facility] Last Admin: 04/05/18 10:44 Dose: 90 mg Physical Exam - Constitutional Appears: Well, Non-toxic - Head Exam Head Exam: ATRAUMATIC, NORMAL INSPECTION - Eye Exam Eye Exam: PERRL. absent: Scleral icterus - ENT Exam ENT Exam: Mucous Membranes Moist, Normal External Ear Exam - Neck Exam Neck exam: Positive for: Full Rom. Negative for: Lymphadenopathy - Respiratory Exam Respiratory Exam: Clear to Auscultation Bilateral, NORMAL BREATHING PATTERN - Cardiovascular Exam Cardiovascular Exam: REGULAR RHYTHM, RRR, +S1, +S2. absent: JVD - GI/Abdominal Exam GI & Abdominal Exam: Hypoactive Bowel Sounds, Normal Bowel Sounds. absent: Organomegaly - Extremities Exam Extremities exam: Negative for: calf tenderness, pedal edema - Neurological Exam Neurological exam: CN II-XII Intact, Oriented x3 - Psychiatric Exam Psychiatric exam: Normal Affect, Normal Mood Results - Vital Signs Recent Vital Signs: Last Vital Signs Temp 98.0 F 04/05/18 07:00 Pulse 86 04/05/18 16:00 Resp 20 04/05/18 07:00 BP 114/79 04/05/18 07:00 Pulse Ox 97 04/05/18 07:00 - Labs Result Diagrams: 04/03/18 23:23 04/03/18 23:23 Labs: Laboratory Results - last 24 hr 04/04/18 04/04/18 04/04/18 11:16 16:26 21:28 POC Glucose (mg/dL) 214 H 154 H 94 Hemoglobin A1c Iron TIBC % Saturation Triglycerides Cholesterol LDL Cholesterol Direct HDL Cholesterol Vitamin B12 Folate 04/05/18 04/05/18 04/05/18 07:15 08:11 08:11 POC Glucose (mg/dL) 184 H Hemoglobin A1c Iron 35 L TIBC 372 % Saturation 10 L Triglycerides 156 H Cholesterol 230 H LDL Cholesterol Direct 156 H HDL Cholesterol 39 Vitamin B12 539 Folate 18.3 04/05/18 04/05/18 08:11 11:16 POC Glucose (mg/dL) 109 Hemoglobin A1c 8.9 H D Iron TIBC % Saturation Triglycerides Cholesterol LDL Cholesterol Direct HDL Cholesterol Vitamin B12 Folate - EKG Data EKG Interpreted by: Myself EKG shows normal: Sinus rhythm - Imaging and Cardiology Chest x-ray Status: Image reviewed by me (No infiltrates or effusions) Assessment & Plan - Assessment and Plan (Free Text) Assessment: 53 year old female with atypical chest pain check serial trop, if negative the [place] is rule out ASHD high dose statin and continue dual antiplatelet therapy, PRN nitro Angina is chronic and stable on ranexa and coreg DM is chronic and needs better control IF three troponins are negative then she is safe to be d/c home. She can follow up in my office in 1 week
[2018-04-05 18:29] LABS: SQUAMOUS EPITHIAL 3 /hpf (0-5); URINE BACTERIA RARE (<OCC); URINE BILIRUBIN NEGATIVE (NEGATIVE); URINE BLOOD NEGATIVE (NEGATIVE); URINE CLARITY Clear (Clear); URINE COLOR Straw (YELLOW); URINE GLUCOSE (UA) NORMAL (Normal); URINE LEUKOCYTE ESTERASE TRACE Leu/uL (Negative); URINE PROTEIN NEGATIVE (NEGATIVE); URINE UROBILINOGEN NORMAL mg/dL (0.2-1.0)
[2018-04-05 19:59] LABS: CK-MB 0.73 ng/mL (0.0-3.38); TROPONIN I 0.026 ng/mL (0.00-0.120)
[2018-04-05 23:07] LABS: CK-MB 0.85 ng/mL (0.0-3.38)
[2018-04-05 23:11] LABS: TROPONIN I 0.026 ng/mL (0.00-0.120)
--- NOTE | 2018-04-06 03:11 | PN ---
DATE: 04/05/2018 SUBJECTIVE: The patient is a 53-year-old female. The patient is seen and examined at the bedside, looking comfortable. No nausea, vomiting, or diarrhea. No hematuria or hematochezia. No swelling of the legs. Chest pain is better. No headache. No dizziness. No fever. No chills. PHYSICAL EXAMINATION: VITAL SIGNS: Temperature 98, pulse 86, respiratory rate 20, blood pressure 114/79, pulse oximetry 97. HEENT: Head: Normocephalic and atraumatic. Eyes: PERRLA. Extraocular muscles intact. Conjunctivae clear. Nose patent. Mucous membranes moist. NECK: Supple. No carotid bruits, JVD, or thyromegaly. CHEST: Bilaterally symmetrical. HEART: S1 and S2 positive. LUNGS: Clear to auscultation. ABDOMEN: Soft. Bowel sounds present. No organomegaly. EXTREMITIES: No edema, no cyanosis. NEUROLOGICAL: The patient is awake, alert. Moving all 4 extremities. No focal deficit. LABORATORY DATA: White blood cells 7.4, hemoglobin 11.5, hematocrit 34.6, platelets 376. Sodium 141, potassium 4, BUN 12, creatinine 0.6, glucose 103. ASSESSMENT AND PLAN: Ms. Chelita Mera is a 53-year-old lady with ischemic cardiomyopathy ASHD, spontaneous bacterial peritonitis, percutaneous coronary intervention of left anterior descending artery for ST elevation myocardial infarction on 03/07/2018. 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 According to Dr. Ledezma, she has atypical chest pain. Serial troponins ordered. If negative, myocardial infarction is ruled out. The patient had high dose of statin. Continue dual antiplatelet therapy p.r.n. and nitroglycerin. Angina is chronic and stable on Ranexa and Coreg. According to Dr. Ledezma, if troponins are negative, the patient can be discharged home safely. Follow up with primary care physician and Dr. Ledezma's office. Hemoglobin A1c is 8.6, it means sugar is not controlled, iron deficiency. Length of time discussion done with the patient and nursing staff with GI and DVT prophylaxis provided. Repeat labs. Patient is on Brilinta, Crestor 20. We will follow up. Sharon Sanchez MD [facility] # [id number] MOOK
[2018-04-06] MEDS: (Novolog) Insulin Aspart, Recombinant 100 u/ml 10 ml vial SC SCH ×2 (07:14→12:26)
[2018-04-06 07:15] LABS: HEMOGLOBIN 12.5 g/dL (11.0-16.0); MEAN CELL VOLUME 86.9 fL (81.0-99.0); MEAN CORPUSCULAR HEMOGLOBIN 28.7 pg (27.0-31.0); MEAN CORPUSCULAR HGB CONC 33.1 g/dL (33.0-37.0); MEAN PLATELET VOLUME 7.6 fL (7.2-11.7); RBC 4.34 Mil/uL (3.80-5.20); RED CELL DISTRIBUTION WIDTH 15.6 % (11.5-14.5); WHITE BLOOD COUNT 9.5 K/uL (4.8-10.8)
[2018-04-06 08:01] LABS: BLOOD UREA NITROGEN 12 mg/dL (7-17); CALCIUM 9.3 mg/dl (8.6-10.4); GFR AFRICAN-AMERICAN > 60; GFR NON-AFRICAN AMERICAN > 60
[2018-04-06 08:11] LABS: CK-MB 0.62 ng/mL (0.0-3.38)
[2018-04-06] MEDS: (Novolin 70/30) NPH/Regular 70/30 Units/ml 10 ml vial SC SCH ×2 (08:22→12:27)
[2018-04-06 09:02] VITALS: BP 93/59; PULSE 89; RESP 20; TEMP 98.1; O2SAT 96
[2018-04-06] MEDS: Ranolazine 500 mg Extended Release Tablets PO SCH (09:19)
[2018-04-06] MEDS: Pantoprazole 40 mg EC Tab PO SCH (09:19)
[2018-04-06] MEDS: Enoxaparin 30 mg Syringe SC SCH (09:23)
--- NOTE | 2018-04-06 09:51 | CON ---
DATE: 04/05/2018 NEUROLOGY CONSULT CHIEF COMPLAINT: Bilateral hand paresthesia. HISTORY OF PRESENT ILLNESS: This is a 53-year-old woman with history of anxiety as well as coronary artery disease, status post stent, history of cardiac arrhythmia and depression, diabetes, gastritis, hypertension, hypercholesterolemia, restless legs syndrome, chronic back pain since fall in 2015 in the mid thoracic lower lumbar area, who presented to the ER due to atypical chest pain, sudden onset, and she is undergoing evaluation. She has elevated triglycerides as well as LDL of 156 and cholesterol of 230. A1c is 8.9. I was consulted for tingling and numbness of both hands, right worse than left. She also has restless legs syndrome and is on Mirapex but has low iron levels and mostly will need iron infusion as an outpatient in order to improve her restless leg intensity. Mild decrease in the right hand data quality consultant when compared to the left. PAST MEDICAL HISTORY: As above. SOCIAL HISTORY: No illicit drug abuse, smoking, or EtOH abuse. ALLERGIES: NO KNOWN DRUG ALLERGIES. FAMILY HISTORY: Noncontributory. REVIEW OF SYSTEMS: A 14-point review of systems negative except in the HPI. MEDICATIONS: Reviewed by nurse reconciliation sheet. LABORATORY DATA: A1c is 8.9, triglycerides 136, cholesterol 230, LDL , B12 level 539, total iron is 35 which is low, percent saturation is 10. PHYSICAL EXAMINATION: VITAL SIGNS: Temperature is 98, pulse rate is 89, blood pressure 114/79, respiratory rate 20, oxygen saturation 97% via room air. GENERAL: The patient is sitting up in bed, in no acute distress. HEENT: Atraumatic, normocephalic. PERRLA. Extraocular muscles are intact. NECK: Supple. No JVD. No adenopathy noted. LUNGS: Clear to auscultation. No adventitious sounds. HEART: S1 and S2. Normal rate and rhythm. No murmur, rubs, or gallops. ABDOMEN: Soft, nontender, nondistended. Bowel sounds are present. EXTREMITIES: No clubbing. No cyanosis. Peripheral pulses are 2+ bilaterally. NEUROLOGIC: The patient is alert and oriented to person, place, month, and year. Speech is fluent without any errors. Cranial nerves II through XII are intact. Motor exam: Moves all extremities equally. Toes are downgoing bilaterally. Sensory exam: Decreased to light touch and pinprick upto the calves bilaterally. Decreased vibration at the toes and knees. DTRs are 2+ throughout, 1 at both knees and ankles. Coordination: [id number] intact. No dysmetria noted. Gait is deferred for now. ASSESSMENT AND PLAN: This is a 53-year-old woman with history of coronary artery disease status post stent, hypertension, hypercholesterolemia, hypertriglyceridemia, chronic back pain in the thoracolumbar area since a fall from 02/2015, diabetes, gastritis, restless legs syndrome, anxiety, asthma who presented with atypical chest pain, and I was consulted for tingling and numbness of both hands, right worse than left. At this time, I feel like her paresthesia on both hands, right worse than left, is secondary to underlying upper extremity compression neuropathy, most likely carpal tunnel syndrome. In addition, superimposed mild diabetic peripheral neuropathy. In addition, has restless legs secondary to iron deficiency anemia. RECOMMENDATIONS: At this time, recommend: 1. We will continue with Cymbalta 60 mg p.o. daily, and we will add gabapentin 100 mg p.o. at bedtime for neuropathic relief. 2. Continue with her Mirapex 1.5 mg p.o. b.i.d. for restless legs syndrome, and we will add gabapentin 100 mg p.o. at bedtime which will help. 3. She is on Lyrica 75 mg p.o. at bedtime which will also help with the neuropathic relief and chronic pain. 4. Needs a diabetic diet. Her A1c is 8.9 and needs to keep her blood sugar between 140 to 180. 5. Continue with her Brilinta and rosuvastatin for stroke prevention as well as cardiac prevention in addition to baby aspirin. Once again, thank you for this consult. She will follow up as an outpatient for followup of her EMG. Carlos Almeida MD
[2018-04-06] MEDS ORDERED: Pneumococcal 23-Valent Vaccine IM ONE (10:00)
--- NOTE | 2018-04-06 12:12 | CARD ---
APPROVED REPORT EKG Measurement Heart [id number] <Conclusion> Normal sinus rhythm Low voltage QRS Cannot rule out Anterior infarct, age undetermined Abnormal ECG
[2018-04-06] MEDS: cefTRIAXone IV 1 gm in Dextros 50 ML IVPB SCH (12:26)
== END 2018-04-06 16:31 | disposition home or self-care (01) ==
LOC: C.ER 22:18 → C.9E 04-04 00:34 → C.5S 04-04 00:55
PROVIDERS: ADMIT Internal Medicine; ATTEND Internal Medicine
DX: R07.89 Other chest pain (principal); D50.9 Iron deficiency anemia, unspecified; E11.42 Type 2 diabetes mellitus with diabetic polyneuropathy; E78.00 Pure hypercholesterolemia, unspecified; E78.5 Hyperlipidemia, unspecified; F41.9 Anxiety disorder, unspecified; G25.81 Restless legs syndrome; G56.00 Carpal tunnel syndrome, unspecified upper limb; I10 Essential (primary) hypertension; I25.119 Atherosclerotic heart disease of native coronary artery with unspecified angina pectoris; I25.2 Old myocardial infarction; I25.5 Ischemic cardiomyopathy; J45.909 Unspecified asthma, uncomplicated; Z95.5 Presence of coronary angioplasty implant and graft
CPT/HCPCS: 36415; 71045; 80048; 80053; 80061; 81001; 82607; 82746; 82948; 83036; 83540; 83550; 83880; 84443; 84484; 85025; 85027; 85610; 85730; 87086; 93005; 96365; 96366; 96372; 96375; 96376; 99285; G0378; J0696; J1650; J2405